=== PATIENT | female | born 1940 | race Caucasian/White ===

== ENCOUNTER 2016-07-24 11:20 | Inpatient (IN) ==
[2016-07-24 12:54] LABS: BASO% 0.1 % (0.0-0.8); HEMATOCRIT 45.4 % (37.0-47.0); HEMOGLOBIN 15.1 g/dL (12.0-16.0); IMM GRAN# 0.07 X1000 (0.0-0.04); IMM GRAN% 0.3 % (0.0-0.5); LYMPH# 2.05 X1000 (1.2-3.4); LYMPH% 9.1 % (20.5-51.1); MCH 30.9 PG (27-31); MCHC 33.3 g/dL (33-37); MCV 92.8 FL (81-99); MONO# 1.43 X1000 (0.11-0.59); MONO% 6.4 % (1.7-9.3); MPV 10.3 FL (7.4-10.4); NEUT% 84.1 % (42.2-75.2); PLT 434 X1000 (130-400); RBC 4.89 XMIL (4.2-5.4)
[2016-07-24 13:33] LABS: MANUAL DIFF NEEDED? NO
[2016-07-24] MEDS ORDERED: SODIUM CHLORIDE 0.9% INJ ONE (13:51)
[2016-07-24] MEDS ORDERED: PHENERGAN IV ONE (13:51)
[2016-07-24] MEDS ORDERED: NS 1,000 ML IV ONE ×2 (13:51→16:31)
[2016-07-24 13:54] LABS: ALBUMIN 4.7 g/dL (3.5-5.0); CALCIUM 9.9 mg/dL (8.8-10.2); POTASSIUM 3.9 mmol/L (3.5-5.1); TOTAL BILIRUBIN 0.47 mg/dL (0.20-1.00); TOTAL PROTEIN 8.1 g/dL (6.3-8.3)
--- NOTE | 2016-07-24 14:13 | PROVIDER DOCUMENTATION ---
HPI-Abdominal Pain/GI Problem - General Source: patient, family - History of Present Illness-ABD Nature of Presenting Problems: 76 yof presents to ed with complaints of vomiting. pt states onset 3 days ago and has had normal bowel movement.denies diarrhea or constipation. Abdominal Pain Onset Location: reports: generalized abdomen Pain Radiation: reports: no radiation Quality of Pain: reports: aching Severity in ED: reports: mild Onset/Duration: reports: 3 days ago Timing: reports: still present Activities at Onset: reports: none Exposure to sick contacts?: No Modifying Factors: improves with: nothing Associated Symptoms: reports: nausea, vomiting. denies: diarrhea Last BM: 24 hours ago Dark Stools Present?: reports: none noticed Rectal Bleeding: reports: none # of Diarrhea Episodes: 0 # of Vomiting Episodes: 5 Similar Symptoms Previously?: No Recently seen or treated by another doctor?: No <Isabella Sood - Last Filed: 07/24/16 16:31> <Gabriel An - Last Filed: 07/24/16 16:36> - General Chief Complaint: Nausea/Vomiting Stated Complaint: poss bowel blockage Time Seen by Provider: 07/24/16 13:43 Allergies/Adverse Reactions: Patient Allergies Allergy/AdvReac Type Severity Reaction Status Date / Time No Known Allergies Allergy Verified 04/17/15 21:08 Home Medications: Home Medication List Medication Instructions Recorded Confirmed Last Taken Type Fluoxetine HCl 40 mg PO QAM 02/12/14 04/17/15 04/17/15 History Levothyroxine Sodium 125 mcg PO QAM 02/12/14 04/17/15 04/17/15 History Tramadol HCl 50 mg PO BID 02/12/14 04/17/15 04/17/15 History LISINOpril [Prinivil] 10 mg PO DAILY #30 tablet 02/15/14 04/17/15 04/17/15 Rx Lactobacillus Rhamnosus GG 1 each PO BID #60 capsule 04/20/15 Unknown Rx [Culturelle] Levofloxacin [Levaquin] 500 mg PO DAILY #8 tablet 04/20/15 Unknown Rx Metronidazole [Flagyl] 500 mg PO TID #24 tablet 04/20/15 Unknown Rx Omeprazole [Prilosec] 40 mg PO DAILY@0700 #14 capsule 04/20/15 Unknown Rx Zinc Sulfate 220 mg PO DAILY #30 capsule 04/20/15 Unknown Rx Amoxicillin [Amoxil] 250 mg PO TID #30 capsule 06/14/16 Unknown Rx Review of Systems - Adult - REVIEW OF SYSTEMS - ADULT Constitutional: reports: fatique. denies: chills, fever Eyes: reports: no symptoms reported Ears, Nose, Mouth & Throat: reports: no symptoms reported Cardiovascular: reports: no symptoms reported Respiratory: reports: no symptoms reported Gastrointestinal: reports: abdominal pain, vomiting. denies: diarrhea Genitourinary: reports: no symptoms reported Musculoskeletal: reports: no symptoms reported Integumentary: reports: no symptoms reported Neurological: reports: no symptoms reported Psychiatric: reports: no symptoms reported Endocrine: reports: no symptoms reported Hematologic/Lymphatic: reports: no symptoms reported Allergic/Immunologic: reports: no symptoms reported All Other Systems: Reviewed and Negative <Isabella Sood - Last Filed: 07/24/16 16:31> Past History - Adult - PAST MEDICAL HISTORY-ADULT Review of Records: reports: Old Records Reviewed, Nursing Assessment Review, Medications Reviewed Major Childhood Illnesses: reports: denies history Cardiovascular: reports: HTN Gastrointestinal: reports: GERD Endocrine/Immune: reports: thyroid disorder - PRIOR SURGERIES/PROCEDURES Surgical/Procedure History: reports: cholecystectomy, other (neck spur) - IMMUNIZATION STATUS Childhood Immunizations: See Nurse Assessment Flu Vaccine: See Nurse Assessment - FAMILY HISTORY Family History: reviewed, not pertinent - SOCIAL HISTORY Smoking: denies Substance Use: denies Alcohol Use Frequency: never Living Situation: family <Isabella Sood - Last Filed: 07/24/16 16:31> Physical Exam-General - PHYSICAL EXAM-ADULT Initial Vital Signs Reviewed: Yes - CONSTITUTIONAL General Appearance: appears well, alert, no apparent distress - EYES Eyes: PERRL/EOMI, pink conjunctivae, fundi clear, no AV nicking - HEAD, EARS, NOSE, MOUTH & THROAT HENMT: normocephalic/atraumatic, moist mucous membranes, normal ENT inspection - NECK Neck: non-tender, full range of motion, supple, normal inspection - RESPIRATORY Respiratory: chest non-tender, lungs clear, normal breath sounds, no pleuratic chest pain, no respiratory distress, no accessory muscle use - CARDIOVASCULAR Cardiovascular: normal peripheral pulses, regular rate, rhythm, no edema, no gallop, no JVD, no murmur - GASTROINTESTINAL (ABDOMEN) Abdominal Exam: normal bowel sounds, soft, no organomegaly, no pulsatile mass, tenderness (general abd) - LYMPHATIC Lymphatic: no adenopathy - MUSCULOSKELETAL Back Exam: normal inspection, no CVA tenderness, no vertebral tenderness Extremity: normal range of motion, non-tender, normal gait, normal inspection, no pedal edema, no calf tenderness, normal capillary refill - SKIN Integumentary: normal color, normal turgor, warm/dry - 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, grossly normal, no motor/sensory deficits - PSYCHIATRIC Psych/Mental Status: normal mood/affect, normal thought content, normal thought process, oriented x 3 <Isabella Sood - Last Filed: 07/24/16 16:31> Progress - PLAN OF CARE/RESULTS Progress/Plan/Lab Results: Laboratory Tests 07/24/16 07/24/16 11:42 11:42 WBC 22.44 H RBC 4.89 Hgb 15.1 Hct 45.4 MCV 92.8 MCH 30.9 MCHC 33.3 RDW Std Deviation 14.0 Plt Count 434 H MPV 10.3 Immature Gran % (Auto) 0.3 Neut % (Auto) 84.1 H Lymph % (Auto) 9.1 L Pitt % (Auto) 6.4 Eos % (Auto) 0.0 Baso % (Auto) 0.1 Immature Gran # (Auto) 0.07 H Neut # (Auto) 18.86 H Lymph # (Auto) 2.05 Pitt # (Auto) 1.43 H Eos # (Auto) 0.00 Baso # (Auto) 0.03 Sodium 138 Potassium 3.9 Chloride 98 Carbon Dioxide 15 L Anion Gap 25 BUN 17 Creatinine 1.4 H Estimated GFR/1.73 m2 36 BUN/Creatinine Ratio 12 Glucose 232 H Calculated Osmolality 285 Calcium 9.9 Total Bilirubin 0.47 AST 18 ALT 22 Alkaline Phosphatase 135 H Total Protein 8.1 Albumin 4.7 Globulin 3.4 Albumin/Globulin Ratio 1.4 Amylase 47 Lipase 17 Orders Category Date Time Status NPO Diet 07/24/16 11:34 Active ABDOMEN/PELVIS W/O CONTRAST [CT] Stat Exams 07/24/16 14:24 Completed cxr [CHEST-2 VIEWS] [RAD] Stat Exams 07/24/16 15:27 Taken AMYLASE [CHEM] Stat Lab 07/24/16 11:42 Completed CBC WITH ELECTRONIC DIFF [HEME] Stat Lab 07/24/16 11:42 Completed COMPREHENSIVE METABOLIC PANEL [CHEM] Stat Lab 07/24/16 11:42 Completed LIPASE [CHEM] Stat Lab 07/24/16 11:42 Completed UDS [URINE DRUG SCREEN] Stat Lab 07/24/16 16:21 Uncollected URINALYSIS W/POSS RFLX CULT [URINALYSIS] Stat Lab 07/24/16 11:34 Uncollected 0.9% Sodium Chloride Inj [Ns] 1,000 ml Med 07/24/16 16:31 Ordered IV 150 mls/hr 0.9% Sodium Chloride Inj [Ns] 1,000 ml Med 07/24/16 13:51 Discontinued IV 999 mls/hr Promethazine [Phenergan] Med 07/24/16 13:51 Discontinued 25 mg IV NOW ONE Sodium Chloride 0.9% Med 07/24/16 13:51 Discontinued 10 ml INJ NOW ONE Vital Signs - 24 hr 07/24/16 11:28 Temperature 97.9 F Pulse Rate 116 H Respiratory 20 Rate Blood Pressure 144/105 O2 Sat by Pulse 96 Oximetry <Isabella Sood - Last Filed: 07/24/16 16:31> - REASSESSMENT Reassessment #2 Time Reassessed: 16:34 Status: unchanged (still vomits on liquids) <Gabriel An - Last Filed: 07/24/16 16:36> Departure <Isabella Sood - Last Filed: 07/24/16 16:31> - Departure Time of Disposition Order: 16:35 Certified Medical Emergency: Emergent <Gabriel An - Last Filed: 07/24/16 16:36> - Departure DIAGNOSIS: Vomiting Qualifiers: Vomiting type: unspecified Vomiting Intractability: unspecified Nausea presence : without nausea Qualified Code(s): R11.11 - Vomiting without nausea Disposition: ADMITTED INPATIENT 09 Condition: Stable Referrals: Andry Sarmiento MD [Primary Care Provider] - Attestation - Scribe Verification/Attestation Scribe:: Isabella Sood Acting as Scribe for:: Gabriel An Scribe documention review:: This chart was documented by a scribe and accurately reflects the service the provider performed and the decisions made by the provider. <Isabella Sood - Last Filed: 07/24/16 16:31> Physician Attestation
--- NOTE | 2016-07-24 15:01 | Diag Imaging Result Document ---
PROCEDURE NAME: ABDOMEN/PELVIS W/O CONTRAST - 07/24/2016 CT ABDOMEN AND PELVIS: A CT dose reduction protocol was used. COMPARISON: 06/14/2016. FINDINGS: There is fatty change of the liver. There are several cysts in the liver. There is some atelectasis or scarring in the lung bases but no infiltrates. There are cholecystectomy clips. No bowel obstruction or inflammation. No free air or free fluid. Normal appendix. No radiodense renal stones or hydronephrosis. Urinary bladder, uterus, and rectum are normal. Degenerative changes of the lower lumbar spine. No acute bony lesions. IMPRESSION: Fatty liver. No acute disease. MTDD
[2016-07-24] MEDS ORDERED: ZOFRAN IV PRN ×2 (16:29→19:32)
--- NOTE | 2016-07-24 16:42 | Diag Imaging Result Document ---
PROCEDURE NAME: CHEST-2 VIEWS - 07/24/2016 CHEST, 2 VIEWS: COMPARISON: 04/17/2015. FINDINGS: There is right hemidiaphragm elevation. No focal infiltrates, pneumothorax, or pleural effusion. Heart size is normal. IMPRESSION: No acute disease.
[2016-07-24] MEDS ORDERED: SODIUM CHLORIDE 0.9% INJ SCH (16:45)
[2016-07-24] MEDS ORDERED: PROTONIX IV SCH (16:45)
[2016-07-24 17:02] LABS: HEMOGLOBIN A1C 5.6 % (4.8-6.0)
[2016-07-24 17:24] LABS: URINE CULTURE NEEDED? NO; URINE SOURCE CATH
[2016-07-24 17:33] LABS: BILIRUBIN URINE NEGATIVE (NEGATIVE); BLOOD URINE TRACE (NEGATIVE); COLOR YELLOW; GLUCOSE URINE NEGATIVE (NEGATIVE); LEUKOCYTES URINE NEGATIVE (NEGATIVE); NITRITE URINE NEGATIVE (NEGATIVE); PROTEIN URINE 70 mg/dL (NEGATIVE); SP GRAVITY URINE 1.024; TURBIDITY URINE CLEAR (CLEAR); URINE MICRO REVIEW NEEDED? YES; UROBILINOGEN URINE NORMAL (NORMAL)
[2016-07-24 17:35] LABS: UR EPITHELIAL CELLS <10 /HPF (<10); URINE BACTERIA NEGATIVE /HPF; URINE RBC <10 /HPF (<10); URINE WBC <10 /HPF (<10)
[2016-07-24 17:36] LABS: URINE CASTS NONE SEEN; URINE CRYSTALS NONE SEEN; URINE SMALL ROUND CELLS NONE SEEN
[2016-07-24] MEDS: NS 1,000 ML IV SCH (17:45)
[2016-07-24 17:50] LABS: FREE T4 1.24 ng/dL (0.93-1.70)
[2016-07-24 17:51] LABS: UR AMPHETAMINES QUAL NONE DETECTED (NONE DETECT); UR BARBITUATES QUAL NONE DETECTED (NONE DETECT); UR BENZODIAZEPIN QUAL NONE DETECTED (NONE DETECT); UR CANNABINOIDS QUAL NONE DETECTED (NONE DETECT); UR COCAINE QUAL NONE DETECTED (NONE DETECT); UR METHADONE QUAL NONE DETECTED (NONE DETECT); UR OPIATES QUAL NONE DETECTED (NONE DETECT); UR OXYCODONE QUAL NONE DETECTED (NONE DETECT); UR PCP QUAL NONE DETECTED (NONE DETECT)
[2016-07-24] MEDS ORDERED: TYLENOL PO PRN (19:32)
[2016-07-24] MEDS ORDERED: LABETALOL IV PRN (19:37)
[2016-07-24] MEDS ORDERED: HUMULIN R SUBQ SCH (21:00)
[2016-07-24] MEDS: PROTONIX IV SCH (22:59)
[2016-07-24] MEDS: SODIUM CHLORIDE 0.9% INJ SCH (22:59)
[2016-07-24] MEDS: COREG PO SCH (23:04)
[2016-07-25] MEDS: NS 1,000 ML IV SCH ×3 (03:11→22:10)
[2016-07-25 06:52] LABS: MANUAL DIFF NEEDED? NO
[2016-07-25 07:04] LABS: BASO% 0.1 % (0.0-0.8); EOS# 0.04 X1000 (0.0-0.7); EOS% 0.3 % (0.0-10.0); HEMATOCRIT 36.2 % (37.0-47.0); IMM GRAN# 0.04 X1000 (0.0-0.04); IMM GRAN% 0.3 % (0.0-0.5); LYMPH# 2.42 X1000 (1.2-3.4); LYMPH% 15.8 % (20.5-51.1); MCH 31.3 PG (27-31); MCHC 33.1 g/dL (33-37); MCV 94.5 FL (81-99); MONO# 1.38 X1000 (0.11-0.59); MPV 9.7 FL (7.4-10.4); NEUT% 74.5 % (42.2-75.2); PLT 305 X1000 (130-400); RBC 3.83 XMIL (4.2-5.4)
[2016-07-25 07:26] LABS: AGAP 11; ALBUMIN 3.7 g/dL (3.5-5.0); ALKALINE PHOSPHATASE 98 U/L (32-104); BUN 15 mg/dL (8-22); CALCIUM 8.8 mg/dL (8.8-10.2); CHLORIDE 106 mmol/L (98-107); COSMO 283; GOT 13 U/L (10-30); GPT 14 U/L (10-36); POTASSIUM 4.1 mmol/L (3.5-5.1); SODIUM 141 mmol/L (136-145); TCO2 24 mmol/L (25-35); TOTAL BILIRUBIN 0.51 mg/dL (0.20-1.00); TOTAL PROTEIN 6.2 g/dL (6.3-8.3)
[2016-07-25] MEDS: ZINC SULFATE PO SCH (08:55)
[2016-07-25] MEDS: PROTONIX IV SCH ×2 (08:55→22:10)
[2016-07-25] MEDS: COREG PO SCH ×2 (08:55→22:11)
[2016-07-25] MEDS: PROZAC PO SCH (08:56)
[2016-07-25] MEDS: SYNTHROID PO SCH (08:56)
[2016-07-25] MEDS ORDERED: PRINIVIL PO SCH (09:00)
[2016-07-25] MEDS ORDERED: LOVENOX SUBQ SCH (12:15)
--- NOTE | 2016-07-25 13:25 | PROGRESS NOTE ---
DATE: 07/25/2016 SUBJECTIVE: The patient is resting comfortably in bed. She has no complaints at this time. She was able to tolerate a clear liquid diet without any nausea or vomiting today. She denies having any abdominal pain at this time. OBJECTIVE: Vital Signs: Temperature 98.1 degrees, blood pressure 117/60, heart rate 84, respirations 19, O2 saturations 100% on room air. General: This is an elderly female, lying in bed, in no acute distress. Head: Normocephalic atraumatic. Heart: S1, S2. Normal. Regular rate and rhythm. Lungs: Clear to auscultation bilaterally. No wheezes, no rales. No rhonchi. Abdomen: Positive bowel sounds. Soft, nontender, nondistended. Extremities: No edema. No cyanosis. No calf tenderness. Neurologic: The patient is awake and alert. LABS: Sodium 141, potassium 4.1, chloride 106, CO2 24, BUN 15, creatinine 0.9. White blood cell count 15, hemoglobin 12, hematocrit 36, platelets 305,000. ASSESSMENT AND PLAN: 1. Nausea with vomiting. The patient is tolerating a clear liquid diet at this time. The stool for C. difficile was negative. 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 2. Acute kidney injury. Resolved. 3. Hypothyroidism. Continue on Synthroid. 4. Hypertension. Controlled. Continue on Coreg. 5. Deep vein thrombosis prophylaxis. Will start the patient on Lovenox. 6. Will consult physical therapy.
[2016-07-25] MEDS: SODIUM CHLORIDE 0.9% INJ SCH (22:10)
--- NOTE | 2016-07-25 22:35 | CONSULTATION ---
DATE OF CONSULTATION: 07/25/2016 REFERRING PHYSICIAN: Cee Tang M.D. PRIMARY CARE PHYSICIAN: Andry Sarmiento M.D. INDICATION FOR CONSULTATION: 1. Nausea with vomiting. 2. Diarrhea. 3. Intermittent fecal incontinence. 4. Abdominal pain. HISTORY OF PRESENT ILLNESS: The patient is a 76-year-old white female who was initially seen in April 2015. At that time, she reported episodic nausea with vomiting, abdominal pain and diarrhea. She was initially thought to have biliary colic and underwent a cholecystectomy on 04/04/2015. She did well for approximately 10 days and then her symptoms recurred. We evaluated her on 04/18/2015 and scheduled an outpatient EGD and colonoscopy after completion of a 10 day course of antibiotics. Unfortunately, the patient states that her symptoms resolved and so she never came for evaluation. Over the last 12 months, she has been seen in the emergency room and has been evaluated by her primary care physician for recurrent episodes of nausea with vomiting, abdominal pain and diarrhea. She is admitted for evaluation of the same. We are asked to participate in her care. PAST MEDICAL HISTORY: 1. Hypertension. 2. Hypothyroidism. 3. Depression. 4. Cholelithiasis. 5. Fatty liver. 6. Hepatic cysts on previous CT scan. 7. Coronary artery disease. 8. Hyperlipidemia. 9. Chronic nausea with vomiting. 10. Chronic diarrhea. 11. CT scan in June 2016 with evidence of gastric ulcer with no evidence of perforation. PAST SURGICAL HISTORY: 1. Laparoscopic cholecystectomy on 04/04/2015. 2. Cervical diskectomy. 3. Hemorrhoidectomy. 4. Surgical repair of an anal fissure. SOCIAL HISTORY: Negative for alcohol, tobacco or recreational drug use. The patient is a and lives alone. Her daughter is concerned about dementia. Therefore consent was discussed with both the patient and her daughter. FAMILY HISTORY: Positive for hypertension. REVIEW OF SYSTEMS: The patient states that she feels a little bit better today. She continues to have nausea with vomiting, diarrhea and abdominal pain. She does state that is not as severe as it was in the past when she had documented acute colitis on CT scan in 2014. MEDICATION ALLERGIES: No known medication allergies. HOME MEDICATION: 1. Zinc sulfate. 2. Prilosec. 3. Levothyroxine. 4. Prinivil. 5. Fluoxetine. PHYSICAL EXAM: General: She is in no acute distress. Vital signs: Her blood pressure is 151/77, pulse 81, respiration 18, temperature of 98.0 degrees. HEENT: Negative for jaundice. Her conjunctivae are slightly pale. Oropharyngeal mucosa membranes are dry. Pulmonary: Lungs are clear to auscultation with normal respiratory effort. Cardiovascular Examination: Reveals regular rate and rhythm with no gallops or rubs. Abdominal Exam: Reveals normoactive bowel sounds. The abdomen is soft with mild to moderate epigastric tenderness but no rebound or guarding. Extremities: Bilaterally are negative for cyanosis, clubbing or edema. Neurologic: Patient is alert and oriented x3. OBJECTIVE DATA: Remarkable for a hemoglobin of 12.0 with hematocrit of 36.2 and a white count of 15.35 which is an interval improvement from her admission white count of 22.44. She has 305,000 platelets. Her sodium is 141, potassium 4.1, chloride 106, CO2 24, BUN 15, creatinine 0.9 with a glucose 111. Calcium is 8.8, total bilirubin 0.51, AST 13, ALT 14, alkaline phosphatase 98, total protein 6.2, albumin 3.7. IMPRESSION: 1. Nausea with vomiting. 2. Abdominal pain. 3. Diarrhea. 4. Recent change on CT scan consistent with gastric ulcer with no evidence of perforation. 5. Known fatty liver disease. 6. Known hepatic cyst. RECOMMENDATION: 1. It was previously recommended that the patient have an EGD and colonoscopy as she has a history of recurrent colitis. Therefore, will schedule an EGD and colonoscopy on Wednesday. Consent was discussed with the patient and her daughter, Melita. 2. I would continue Protonix 40 mg IV q.12 hours. 3. Continue supportive care and IV hydration. 4. Continue zinc sulfate. She has a history of zinc deficiency. 5. Additional recommendations to follow based on her clinical course. [facility]
[2016-07-26 07:02] LABS: HEMATOCRIT 33.1 % (37.0-47.0); HEMOGLOBIN 10.6 g/dL (12.0-16.0); MCH 31.2 PG (27-31); MCV 97.4 FL (81-99); MPV 9.9 FL (7.4-10.4); RBC 3.4 XMIL (4.2-5.4)
[2016-07-26 07:21] LABS: AGAP 13; BUN 11 mg/dL (8-22); CHLORIDE 106 mmol/L (98-107); COSMO 278; POTASSIUM 3.2 mmol/L (3.5-5.1); SODIUM 140 mmol/L (136-145); TCO2 21 mmol/L (25-35)
[2016-07-26] MEDS ORDERED: KLOR-CON PO ONE (08:15)
[2016-07-26] MEDS: PROZAC PO SCH (11:23)
[2016-07-26] MEDS: SYNTHROID PO SCH (11:23)
[2016-07-26] MEDS: ZINC SULFATE PO SCH (11:23)
[2016-07-26] MEDS: PROTONIX IV SCH ×2 (11:23→21:13)
[2016-07-26] MEDS: COREG PO SCH ×2 (11:23→21:12)
[2016-07-26] MEDS: NS 1,000 ML IV SCH (11:24)
[2016-07-26] MEDS ORDERED: GOLYTELY PO ONE (14:00)
--- NOTE | 2016-07-26 17:37 | PROGRESS NOTE ---
DATE: 07/26/2016 SUBJECTIVE: The patient is resting comfortably in bed. She states that she feels a lot better today. She is scheduled to undergo an EGD on Wednesday. OBJECTIVE: Vital Signs: Temperature 98 degrees, blood pressure 148/70, heart rate 81, respirations 19, O2 saturations 98% on room air. General: This is an overweight female lying in bed in no acute distress. Head: Normocephalic, atraumatic. Heart: S1, S2. Normal. Regular rate and rhythm. Lungs: Clear to auscultation bilaterally. No wheezes, no rales. No rhonchi. Abdomen: Positive bowel sounds. Soft, nontender, nondistended. Extremities: No edema. No cyanosis. No calf tenderness. Neurologic: The patient is alert and oriented x3. No focal neurologic deficits noted. LABS: White blood cell count 9.1, hemoglobin 10, hematocrit 33, platelets 261,000. Sodium 140, potassium 3.2, chloride 106, CO2 21, BUN 11, creatinine 0.7, glucose 88, calcium 8.0. ASSESSMENT AND PLAN: 1. Nausea with vomiting. This appears to have resolved. The patient is scheduled to undergo an EGD with colonoscopy tomorrow. Continue on IV Protonix. 2. Hypothyroidism. Continue on Synthroid. 3. Situational depression. Continue on Prozac. 4. Hypertension. Controlled. Continue on Coreg. 5. Deep vein thrombosis prophylaxis. Continue with SCDs. 6. Will consult physical therapy.
[2016-07-27 07:25] LABS: HEMATOCRIT 34.9 % (37.0-47.0); HEMOGLOBIN 11.5 g/dL (12.0-16.0); MCH 31.8 PG (27-31); MCV 96.4 FL (81-99); RBC 3.62 XMIL (4.2-5.4)
[2016-07-27 07:53] LABS: AGAP 12; BUN 6 mg/dL (8-22); CALCIUM 8.4 mg/dL (8.8-10.2); CHLORIDE 104 mmol/L (98-107); COSMO 279; SODIUM 141 mmol/L (136-145); TCO2 25 mmol/L (25-35)
[2016-07-27] MEDS: PROTONIX IV SCH ×2 (08:20→21:44)
[2016-07-27] MEDS: SODIUM CHLORIDE 0.9% INJ SCH (08:20)
[2016-07-27] MEDS ORDERED: MYLICON DROPS (DOSE) MISC ONE (14:52)
[2016-07-27] MEDS ORDERED: DIPRIVAN 1% ONE (15:57)
[2016-07-27] MEDS ORDERED: FENTANYL ONE (15:57)
[2016-07-27 15:58] LABS: SPECIMEN GASTRIC FLUID
[2016-07-27] MEDS ORDERED: XYLOCAINE-MPF 2% ONE (16:06)
[2016-07-27] MEDS ORDERED: LR 1,000 ML ONE (16:07)
[2016-07-27] MEDS ORDERED: ANESTHESIA PB SET 88 IN 5742 ONE (16:07)
[2016-07-27] MEDS: ZINC SULFATE PO SCH (17:14)
[2016-07-27] MEDS: SYNTHROID PO SCH (17:14)
[2016-07-27] MEDS: PROZAC PO SCH (17:14)
[2016-07-27] MEDS: COREG PO SCH (17:14)
[2016-07-27] MEDS: CARAFATE LIQUID PO SCH ×2 (17:28→21:44)
[2016-07-27] MEDS: NS IV SCH ×2 (17:28→21:49)
[2016-07-27] MEDS: FLAGYL IV SCH ×2 (17:28→21:49)
[2016-07-27] MEDS: LEVAQUIN 500 MG/D5W 100 ML IV SCH (18:44)
--- NOTE | 2016-07-27 19:41 | PROGRESS NOTE ---
DATE: 07/27/2016 SUBJECTIVE: Patient reports feeling better. The patient is supposed to have EGD today. OBJECTIVE: Vital Signs: Temperature 97.8 degrees, heart rate 72, respiratory rate 20, blood pressure 178/83, O2 saturation 95% on room air. General Examination: This is a 76-year-old, female lying in bed, in no acute distress. HEENT: Head is normocephalic, atraumatic. Anicteric sclerae and pale conjunctivae. Mucous membranes moist. Neck: Supple. No JVD is noted. No carotid bruits. No lymphadenopathy. No thyromegaly. Cardiovascular: S1, S2 heard. No murmurs, gallops, or rubs. Regular rate and rhythm. Respiratory Examination: Clear bilaterally to auscultation. No work of breathing or using accessory muscles. Abdomen: Soft, nontender to palpation. Bowel sounds present. No organomegaly. Extremities: No clubbing, cyanosis, or edema. Peripheral pulses present in both legs. Neurological Examination: Patient alert and oriented x3. Able to move 4 extremities. LABORATORY DATA: White cell count 6.97, hemoglobin 11.5, hematocrit 34.9, platelets 262,000. BMP unremarkable. ASSESSMENT AND PLAN: 1. Intractable nausea and vomiting. This condition is resolving. EGD is going to be performed by Dr. Michael. 2. Hypothyroidism. We will continue with Synthroid. 3. Situational depression. We will continue with Prozac. 4. Hypertension. We will continue with Coreg. 5. Deep vein thrombosis prophylaxis with SCDs. 6. Physical deconditioning. Physical Therapy on board..
[2016-07-27] MEDS: NORVASC PO SCH (21:49)
[2016-07-28] MEDS: FLAGYL IV SCH ×3 (05:59→19:07)
[2016-07-28] MEDS: CARAFATE LIQUID PO SCH ×3 (05:59→19:08)
[2016-07-28] MEDS: COREG PO SCH ×3 (05:59→20:22)
[2016-07-28] MEDS: NS IV SCH ×3 (05:59→19:07)
[2016-07-28 07:34] LABS: AGAP 11; BUN 5 mg/dL (8-22); CALCIUM 8.5 mg/dL (8.8-10.2); CHLORIDE 101 mmol/L (98-107); COSMO 271; POTASSIUM 3.1 mmol/L (3.5-5.1); SODIUM 136 mmol/L (136-145); TCO2 24 mmol/L (25-35)
[2016-07-28 08:31] LABS: MANUAL DIFF NEEDED? NO
[2016-07-28 08:32] LABS: BASO% 0.3 % (0.0-0.8); EOS# 0.13 X1000 (0.0-0.7); EOS% 1.7 % (0.0-10.0); HEMATOCRIT 33.8 % (37.0-47.0); HEMOGLOBIN 11.4 g/dL (12.0-16.0); IMM GRAN# 0.02 X1000 (0.0-0.04); IMM GRAN% 0.3 % (0.0-0.5); LYMPH# 2.06 X1000 (1.2-3.4); LYMPH% 27.4 % (20.5-51.1); MCH 31.6 PG (27-31); MCHC 33.7 g/dL (33-37); MCV 93.6 FL (81-99); MONO# 0.64 X1000 (0.11-0.59); MONO% 8.5 % (1.7-9.3); MPV 10.2 FL (7.4-10.4); NEUT% 61.8 % (42.2-75.2); PLT 261 X1000 (130-400); RBC 3.61 XMIL (4.2-5.4)
[2016-07-28] MEDS: PROZAC PO SCH (08:43)
[2016-07-28] MEDS: NORVASC PO SCH ×2 (08:43→20:22)
[2016-07-28] MEDS: SYNTHROID PO SCH (08:44)
[2016-07-28] MEDS: ZINC SULFATE PO SCH (08:44)
[2016-07-28] MEDS: PROTONIX IV SCH ×2 (08:45→20:22)
[2016-07-28] MEDS: SODIUM CHLORIDE 0.9% INJ SCH (08:45)
[2016-07-28] MEDS ORDERED: POTASSIUM CHLORIDE 60 MEQ in NS 500 ML IV ONE (09:00)
--- NOTE | 2016-07-28 15:37 | PROGRESS NOTE ---
DATE: 07/28/2016 SUBJECTIVE: The patient states that her nausea with vomiting and abdominal pain have improved since she was placed on IV antibiotics and IV Protonix, as well as Carafate on 07/28/2016. She is hungry and ready to go home. She denies complaints otherwise. OBJECTIVE: Vital signs: On exam, her blood pressure is 157/79, pulse 75, respiration 20, temperature of 98.1 degrees. Abdominal: Reveals normoactive bowel sounds. The abdomen is soft with mild diffuse tenderness but it is considerably less than her previous exam. LABORATORY DATA: Remarkable for hemoglobin of 11.1, with hematocrit of 33.8, and a white count of 7.52. She has 261,000 platelets. Sodium is 136, potassium 3.1, chloride 101, CO2 24, BUN 5, creatinine 0.7, with a glucose of 128. Her calcium is 8.5. Her gastric pH is 4. RECOMMENDATION: 1. Continue Carafate and Protonix for the ulcers. 2. Continue IV antibiotics for her colitis. I would transition to oral antibiotics on 07/29/2016. 3. I would advance her diet. 4. If she tolerates advancement of her diet and oral antibiotics tomorrow, it would be reasonable to consider outpatient management with a 10 day course of antibiotics followed by clinic follow up. 5. Additional recommendations to follow based on her clinical course.
--- NOTE | 2016-07-28 17:02 | PROGRESS NOTE ---
DATE: 07/28/2016 The patient reports feeling better. She is not vomiting. Denies any abdominal pain and she did tolerate a clear liquid diet. OBJECTIVE: Vital Signs: Temperature 98.1 degrees, heart rate 75, respiratory rate 20, blood pressure 157/79, O2 saturation 96% on room air. General Examination: This is a 76-year-old female lying in bed, in no acute distress. HEENT: Head is normocephalic, atraumatic. Anicteric sclerae and pale conjunctivae. Mucous membranes moist. Neck: Supple. No JVD noted. No carotid bruits. No lymphadenopathy. No thyromegaly. Cardiovascular: S1 and S2 heard. No murmurs, gallops, or rubs. Regular rate and rhythm. Respiratory: Clear bilaterally to auscultation. No work of breathing or using accessory muscles. Abdomen: Soft, nontender to palpation. Bowel sounds present. No organomegaly. Extremities: No clubbing, cyanosis, or edema. Peripheral pulses present in both legs. Neurological: Patient is alert and oriented x3. Able to move 4 extremities. LABORATORY DATA: White cell count 7.52, hemoglobin 11.4, hematocrit 33.8, platelets 261,000. BMP unremarkable except potassium 3.1. ASSESSMENT AND PLAN: 1. Erosive gastritis with antral ulcer. 2. Pancolitis. 3. Intractable nausea and vomiting. 4. Hypothyroidism. 5. Situational depression. 6. Hypertension. 7. DVT prophylaxis. PLAN: Patient is feeling fine. She is tolerating clear liquid diet so I think that this patient is doing good. The hemoglobin is so far stable. I think if this patient continues to tolerate diet she can be discharged home. We will continue with the treatment for colitis for 10 more days. She will have a followup in the office with Dr. Michael. For hypothyroidism we will continue with Synthroid. For situational depression we will continue Prozac. For hypertension patient has been kept on Coreg which is home medication and blood pressure is mostly between 130 and 150.
[2016-07-28] MEDS: LEVAQUIN 500 MG/D5W 100 ML IV SCH (20:21)
[2016-07-29] MEDS: CARAFATE LIQUID PO SCH ×3 (01:16→12:26)
[2016-07-29] MEDS: FLAGYL IV SCH ×3 (01:16→12:21)
[2016-07-29] MEDS: NS IV SCH ×3 (01:16→12:21)
[2016-07-29 08:14] VITALS: BP 156/95
[2016-07-29] MEDS: SODIUM CHLORIDE 0.9% INJ SCH (09:58)
[2016-07-29] MEDS: PROTONIX IV SCH (09:58)
[2016-07-29] MEDS: SYNTHROID PO SCH (09:59)
[2016-07-29] MEDS: COREG PO SCH (09:59)
[2016-07-29] MEDS: PROZAC PO SCH (09:59)
[2016-07-29] MEDS: NORVASC PO SCH (09:59)
[2016-07-29] MEDS: ZINC SULFATE PO SCH (09:59)
--- NOTE | 2016-07-29 16:24 | DISCHARGE SUMMARY ---
ADMISSION DATE: 07/24/2016 DISCHARGE DATE: 07/29/2016 ADMISSION DIAGNOSES: 1. Nausea with vomiting. 2. Acute kidney injury. 3. Hypothyroidism. 4. Hypertension. DISCHARGE DIAGNOSES: 1. Erosive gastritis with antral ulcer. 2. Atte colitis. 3. Intractable nausea and vomiting. 4. Hypothyroidism. 5. Situational depression. 6. Hypertension. CONSULTATIONS: Cherise Michael M.D., Gastroenterology. PROCEDURES: Colonoscopy and esophagogastroduodenoscopy with a postop diagnosis of esophagitis, erosive gastritis, antral ulcer, active bile reflux in the duodenum, duodenitis , erosions of the fundus and antrum, ascending colon polyp, and polyp at 65 cm, diverticulosis, pancolitis, external and internal hemorrhoids. HOSPITAL COURSE: Ms. Franklin is a 76-year-old, female who presented on 07/24/2016 with complaints of nausea, vomiting, diarrhea and abdominal pain. She was last seen in April 2015 and initially thought to have biliary colic. At that time went for a cholecystectomy. Apparently she did well and the symptoms recurred. She was scheduled as an outpatient for EGD and colonoscopy after completing antibiotics in April. Once she completed antibiotics her symptoms resolved so she never came for the EGD and colonoscopy. Dr. Michael was consulted who performed an EGD and a colonoscopy, and found that she had esophagitis, erosive gastritis with antral ulcer, duodenitis, pancolitis, colon polyps, diverticulosis, internal and external hemorrhoids. She was continued on Levaquin, Flagyl, Carafate and Protonix during her stay. She has been denying vomiting. She denies abdominal pain. She has been tolerating a her diet. Plans are to continue with treatment for colitis over the next 10 days. She will have a followup with Dr. Michael as outpatient. For her hypothyroidism she will continue Synthroid. For the situational depression she will continue Prozac. For her hypertension she was kept on Coreg which was her home medication. She has maintained her blood pressure between 120 and 150. DISCHARGE VITAL SIGNS: Temperature 97.8 degrees, heart rate 89, respiratory rate 18, blood pressure 156/95, O2 saturation 95% on room air. LABORATORY DATA: White blood cells 7000, hemoglobin 11, hematocrit 33, platelet count 261,000. Sodium 136, potassium 3.1, BUN 5, creatinine 0.7, glucose 128, calcium 8.5. These labs were drawn on 07/28/2016 she was replaced with potassium for the 3.1. IMAGIN07/24/[address]: Fatty liver. No acute disease. 07/24/2016 chest x-ray: No acute disease. There is a right hemidiaphragm. DISCHARGE DIET: GI soft. DISCHARGE ACTIVITY: As tolerated. DISCHARGE MEDICATIONS: 1. We have added Carafate 1 g p.o. q.6 hours. 2. Her Coreg she will continue at 6.25 p.o. every 12 hours. 3. Levaquin 750 p.o. daily for 8 more days for a total of 10 days. 4. Flagyl she will do 500 mg p.o. 3 times a day. 5. Norvasc 5 mg p.o. twice daily. 6. She will continue fluoxetine 40 mg p.o. daily, 7. Synthroid 125 mcg p.o. daily. DISPOSITION: Home. DISCHARGE INSTRUCTIONS: Continue antibiotic therapy as instructed and follow up with Dr. Michael as outpatient. DISCHARGE TIME : 38 minutes Dictated by KYLE Kelly for Milton Ceja MD MTDD
--- NOTE | 2016-07-31 18:13 | HISTORY AND PHYSICAL ---
CHIEF COMPLAINT: Persistent nausea and vomiting for the last several days. HISTORY OF PRESENT ILLNESS: Ms. Franklin is a 76-year-old female with a history of hypertension, hypothyroidism, depression and coronary artery disease, who presented to the ER with a chief complaint of nausea, vomiting and diarrhea, that had been going on for at least 3-4 days. The patient is a very poor historian. She just states that she has been unable to keep liquids or solids down because she feels nauseous. The patient denies having any abdominal pain at this time. She denies having fever or chills. She does report diarrhea that she had maybe 2 days ago. The patient was seen by Dr. Michael in the past. However, the patient has not followed up with Dr. Michael for further evaluation since her prior hospital stay. The patient denies having any chest pain, syncope or change in gait or balance at this time. In the ER, a CT of the abdomen and pelvis was done that revealed fatty liver disease, but was otherwise unremarkable. PAST MEDICAL HISTORY: 1. Hepatic steatosis. 2. Coronary artery disease. 3. Dyslipidemia. 4. Depression. 5. Hypothyroidism. 6. Hypertension. 7. Obesity. PAST SURGICAL HISTORY: 1. Hemorrhoidectomy. 2. Cervical diskectomy. 3. Laparoscopic cholecystectomy. 4. Anal fissure repair. SOCIAL HISTORY: The patient is and lives alone at home. She states that she has a daughter that lives close by that checks on her daily. The patient denies any tobacco, alcohol or illicit drug use. FAMILY HISTORY: Positive for hypertension. HOME MEDICATIONS: 1. Prilosec 40 mg p.o. daily. 2. Synthroid 125 mcg p.o. every morning. 3. Lisinopril 10 mg p.o. daily. 4. Prozac 40 mg p.o. every morning. ALLERGIES: No known drug allergies. REVIEW OF SYSTEMS: All review of systems were noted to be negative, except for what is listed in the HPI. PHYSICAL EXAMINATION: VITAL SIGNS: Temperature 97.9, blood pressure 144/78, heart rate 90, respirations 16, O2 saturations 98% on room air. GENERAL: This is an elderly female, lying in bed, in no acute distress. HEAD: Normocephalic, atraumatic. HEART: S1, S2. Normal. Regular rate and rhythm. LUNGS: Clear to auscultation bilaterally. No wheezing, no rales. No rhonchi. ABDOMEN: Positive bowel sounds. Soft, nontender, nondistended. EXTREMITIES: No edema. No cyanosis. No calf tenderness. NEUROLOGIC: The patient is alert and oriented x3. No focal neurologic deficits noted. LABS: White blood cell count 22, hemoglobin 15, hematocrit 45, platelets 434. Sodium 138, potassium 3.9, chloride 98, CO2 of 15, BUN 17, creatinine 1.4, glucose 232. Calcium 9.9. AST 18, ALT 22, alkaline phosphatase 135, albumin 4.7. TSH 10. Free T4 of 1.2. Drug toxicology screen negative. CT of the abdomen and pelvis reveals fatty liver disease. ASSESSMENT AND PLAN: 1. Nausea, vomiting and diarrhea. We will start the patient on IV Protonix and IV fluid hydration. We will leave the patient n.p.o. for now and consult Gastroenterology. We will also order stool studies. 2. Leukocytosis. Blood cultures have been obtained as well as stool studies. We will hold off on starting IV antibiotics at this time. The patient is afebrile. We will also check a CRP and sedimentation rate. 3. Hypertension. This appears to be uncontrolled. Will add Coreg and continue on the patient's lisinopril. 4. Hypothyroidism. Continue on Synthroid. 5. Situational depression. Continue on Prozac. 6. Deep vein thrombosis prophylaxis. Will start the patient on Lovenox 40 mg subcutaneous daily. cc: Cee Tang MD
--- NOTE | 2016-07-31 20:58 | OPERATIVE NOTE ---
PROCEDURE DATE: 07/27/2016 REFERRING PHYSICIAN: Cee Tang M.D. PRIMARY CARE PHYSICIAN: Andry Sarmiento M.D. INDICATION FOR PROCEDURE: 1. Nausea with vomiting. 2. Diarrhea. 3. Abdominal pain. 4. CT scan consistent with peptic ulcer disease. PROCEDURE PERFORMED: 1. Esophagogastroduodenoscopy with biopsy. 2. Esophagogastroduodenoscopy with esophageal brushings. 3. Gastric fluid aspiration. CONSENT: Informed consent was obtained from the patient prior to the procedure. The risks, benefits, and alternatives were discussed. MEDICATION: The patient received monitored anesthesia care. PERFORMING PHYSICIAN: Cherise Michael M.D. ASSISTANTS: 1. [facility]. [facility] 2. Arely Jaimes RN. 3. Luci Rust RN 4. Brook Hooks CRNA. 5. Jimmy Corbett M.D. (anesthesia). COMPLICATIONS: There were no complications. ESTIMATED BLOOD LOSS: 1-2 mL. SPECIMENS REMOVED: 1. Duodenal biopsy. 2. Gastric aspirate. 3. Gastric biopsy. 4. Esophageal brushings. FINDINGS: After sedation was achieved, the upper endoscope was inserted to the 2nd portion of the duodenum. The hypopharynx appeared grossly normal. In the tubular esophagus, there was grade D erosive esophagitis that began at the upper esophagus and extended the entire length of the esophagus. There was also skin sloughing and therefore esophageal brushings were obtained. There was a deep serpiginous ulcer at the GE junction and the Schatzki ring with no evidence of obstruction. The GE junction was measured at 40 cm from the incisors. There was a large hiatal hernia that spanned from 40-45 cm. In the gastric lumen, there was erosive gastritis with 5 acute ulcers with serpiginous bases. There was no stigmata of active bleeding. However, there were scattered deep erosions and superficial ulcers in the antrum, fundus and body. Multiple biopsies were taken. The pylorus was very inflamed but patent. In the duodenum, there was duodenitis with a large duodenal ulcer in the bulb with a superficial whitish base and no stigmata of bleeding. Biopsies were taken. The second portion of the duodenum was inflamed but there were no visible ulcers. After the exam was complete, the lumen was decompressed and the scope was removed without incident. IMPRESSION: 1. Grade D erosive esophagitis. 2. Distal esophageal ulcer. 3. Schatzki ring. 4. Hiatal hernia. 5. Erosive gastritis. 6. Five antral ulcers. 7. Superficial ulcers in the gastric fundus. 8. Duodenal bulb ulcer. RECOMMENDATION: 1. Await biopsy results. 2. Continue Protonix 40 mg IV q.12 hours. 3. Add Carafate 1 g p.o. 4 times a day. 4. Consider repeat EGD in 12 weeks. 5. Given the number of ulcers, I will check a serum gastrin level and gastric pH. 6. Will proceed with a colonoscopy as previously scheduled. cc: Andry Sarmiento MD MTDD
--- NOTE | 2016-07-31 21:15 | OPERATIVE NOTE ---
PROCEDURE DATE: 07/27/2016 REFERRING PHYSICIAN: Cee Tang M.D. REFERRING PHYSICIAN: Andry Sarmiento M.D. INDICATIONS FOR PROCEDURE: 1. Nausea with vomiting. 2. Diarrhea. 3. Abdominal pain. PROCEDURE PERFORMED: 1. Colonoscopy with polypectomy. 2. Colonoscopy with biopsy. 3. Stool aspiration. CONSENT: Informed consent was obtained from the patient prior to the procedure. The risks, benefits, and alternatives were discussed. MEDICATION: The patient received monitored anesthesia care. PERFORMING PHYSICIAN: Cherise Michael M.D. ASSISTANTS: 1. [facility] 2. Arely Jaimes RN. 3. Luci Soto RN. 4. Marleni Hooks CRNA. 5. Jimmy Corbett M.D. (anesthesia). COMPLICATIONS: There were no complications. ESTIMATED BLOOD LOSS: 1-2 mL. CECAL INTUBATION TIME: 14 minutes. WITHDRAWAL TIME: 20 minutes. PREP QUALITY: Fair to poor. FINDINGS: After the EGD was performed, the pediatric colonoscope was inserted to the cecum. The appendiceal orifice and ileocecal valve appeared endoscopically normal. There were 2 ascending colon polyps that ranged in size from 5-10 mm that were removed by snare cautery. There was diffuse erythema in the colon consistent with pancolitis. Random colon biopsies were obtained. There was diverticulosis in the descending and sigmoid colon. There was greater than a 10 mm polyp at 65 cm that was removed by snare cautery. The remainder of the left colon appeared normal except for the aforementioned diverticulosis. In the upper rectum, there were grade 1 internal hemorrhoids. On retroflexed view, there were medium external hemorrhoids. After the exam was complete, the lumen was decompressed and the scope was removed without incident. SPECIMENS REMOVED: 1. Ascending colon polyps x2. 2. Random colon biopsies. 3. Stool aspirate. 4. Polyp at 65 cm. IMPRESSION: 1. Colon polyps in the ascending colon. 2. Pancolitis. 3. Diverticulosis. 4. Large polyp at 65 cm status post snare cautery. 5. Grade 1 internal hemorrhoids. 6. Medium external hemorrhoids. RECOMMENDATION: 1. Await biopsy results. 2. We will check a stool lactoferrin and a fecal white blood cell in light of the diarrhea. 3. Because of the unexplained erythema, I will begin Levaquin and Flagyl for the next 10 days. She will receive Levaquin 750 mg 1 p.o. daily for 10 days and Flagyl 250 mg q.8 hours for 10 days. 4. We await biopsy results. 5. We will have the patient return to clinic in 4-6 weeks to assess interval progress and review the results of her testing. cc: MD Cee Chavez MD David Francis, MD MTDD
== END 2016-07-29 12:53 | disposition home or self-care (01) ==
LOC: ED 11:20 → 3N 17:18
PROVIDERS: ATTEND Internal Medicine

== ENCOUNTER 2018-07-26 06:00 | Inpatient (IN) ==
[2018-07-26 07:42] LABS: URINE SOURCE CATH
[2018-07-26 07:45] LABS: BILIRUBIN URINE NEGATIVE (NEGATIVE); BLOOD URINE NEGATIVE (NEGATIVE); COLOR YELLOW; GLUCOSE URINE NEGATIVE (NEGATIVE); KETONE URINE NEGATIVE (NEGATIVE); LEUKOCYTES URINE MODERATE (NEGATIVE); NITRITE URINE POSITIVE (NEGATIVE); PH URINE 6.5; PROTEIN URINE TRACE mg/dL (NEGATIVE); SP GRAVITY URINE 1.015; TURBIDITY URINE HAZY (CLEAR); UROBILINOGEN URINE NORMAL (NORMAL)
[2018-07-26 07:47] LABS: BASO# 0.03 X1000 (0.0-0.2); BASO% 0.2 % (0.0-0.8); EOS# 0.07 X1000 (0.0-0.7); EOS% 0.6 % (0.0-10.0); HEMATOCRIT 39.3 % (37.0-47.0); HEMOGLOBIN 12.8 g/dL (12.0-16.0); IMM GRAN# 0.04 X1000 (0.0-0.04); IMM GRAN% 0.3 % (0.0-0.5); LYMPH# 2.21 X1000 (1.2-3.4); MCH 30.2 PG (27-31); MCHC 32.6 g/dL (33-37); MCV 92.7 FL (81-99); MONO# 1.16 X1000 (0.11-0.59); MONO% 9.4 % (1.7-9.3); MPV 10.5 FL (7.4-10.4); NEUT# 8.77 X1000 (1.4-6.5); NEUT% 71.5 % (42.2-75.2); PLT 302 X1000 (130-400); RBC 4.24 XMIL (4.2-5.4); RDW 12.8 % (11.5-14.5); WBC 12.28 X1000 (4.8-10.8)
[2018-07-26 07:47] LABS: UR EPITHELIAL CELLS <10 /HPF (<10); URINE BACTERIA 4+ /HPF; URINE RBC <10 /HPF (<10); URINE WBC TNTC /HPF (<10)
[2018-07-26] MEDS ORDERED: ROCEPHIN 2 GM in NS 50 ML IV ONE (07:51)
[2018-07-26] MEDS ORDERED: NS 1,000 ML IV ONE (07:51)
[2018-07-26 07:55] LABS: AGAP 10; ALB/GLOB RATIO 1.5; ALKALINE PHOSPHATASE 116 U/L (32-104); BUN 10 mg/dL (8-22); CALCIUM 9.3 mg/dL (8.8-10.2); CHLORIDE 105 mmol/L (98-107); COSMO 279; CREATININE 0.7 mg/dL (0.5-0.9); ESTIMATED GFR > 60; GLUCOSE 101 mg/dL (70-104); GOT 20 U/L (10-30); GPT 17 U/L (10-36); POTASSIUM 3.6 mmol/L (3.5-5.1); SODIUM 140 mmol/L (136-145); TCO2 25 mmol/L (25-35); TOTAL BILIRUBIN 0.51 mg/dL (0.20-1.00); TOTAL PROTEIN 6.6 g/dL (6.3-8.3)
--- NOTE | 2018-07-26 09:45 | PROVIDER DOCUMENTATION ---
This chart was entered by Nichelle Frederick Scribe, acting as scribe for Andry Chau MD. HPI-General Adult - General Chief Complaint: Altered Mental Status Stated Complaint: ams Time Seen by Provider: 07/26/18 06:18 Source: family Allergies/Adverse Reactions: Patient Allergies Allergy/AdvReac Type Severity Reaction Status Date / Time No Known Allergies Allergy Verified 06/29/18 12:30 Home Medications: Home Medication List Medication Instructions Recorded Confirmed Last Taken Type Fluoxetine HCl 40 mg PO QAM 02/12/14 07/24/16 07/24/16 08:00 History Levothyroxine Sodium 125 mcg PO QAM 02/12/14 07/24/16 07/24/16 08:00 History LISINOpril [Prinivil] 10 mg PO DAILY #30 tablet 02/15/14 07/24/16 07/24/16 08:00 Rx Omeprazole [Prilosec] 40 mg PO DAILY@0700 #14 capsule 04/20/15 07/24/16 07/24/16 08:00 Rx Zinc Sulfate 220 mg PO DAILY #30 capsule 04/20/15 07/24/16 07/24/16 08:00 Rx Amlodipine [Norvasc] 5 mg PO BID #60 tablet 07/29/16 Unknown Rx Carvedilol [Coreg] 6.25 mg PO Q12HR #60 tablet 07/29/16 Unknown Rx Sucralfate [Carafate Liquid] 1 gm PO Q6H #120 udc 07/29/16 Unknown Rx Cephalexin 500 mg PO TID #21 cap 07/01/18 Unknown Rx - History of Present Illness -Gen Adult Nature of Presenting Problems: Patient is a 78 year old female who presents to the ED via EMS for frequent falls. Patient's family states patient has a history of dementia. Patient's family states patient was recently admitted for a fall a few weeks ago. Patient's daughter states she is unable to care for the patient at home. Patient's daughter denies patient recently having a head injury. Location of Pain/Injury: reports: none Pain Radiation: reports: no radiation Quality of Pain: reports: none Severity: reports: mild Onset/Duration: reports: gradual Timing: reports: still present Context/Activities at Onset: reports: light activity Modifying Factors: improves with: nothing Associated Symptoms: reports: denies symptoms Similar Symptoms Previously?: Yes Recently seen or treated by another doctor?: Yes Review of Systems - Adult - REVIEW OF SYSTEMS - ADULT Constitutional: reports: no symptoms reported Eyes: reports: no symptoms reported Ears, Nose, Mouth & Throat: reports: no symptoms reported Cardiovascular: reports: no symptoms reported Respiratory: reports: no symptoms reported Gastrointestinal: reports: no symptoms reported Genitourinary: reports: no symptoms reported Musculoskeletal: reports: no symptoms reported Integumentary: reports: no symptoms reported Neurological: reports: no symptoms reported Psychiatric: reports: no symptoms reported Endocrine: reports: no symptoms reported Hematologic/Lymphatic: reports: no symptoms reported Allergic/Immunologic: reports: no symptoms reported All Other Systems: Reviewed and Negative Past History - Adult - PAST MEDICAL HISTORY-ADULT Review of Records: reports: Nursing Assessment Review, Medications Reviewed, Social history reviewed & non-contributory. Major Childhood Illnesses: reports: denies history Cardiovascular: reports: HTN Respiratory: reports: denies history Gastrointestinal: reports: GERD Obstetrical/Gynecological: reports: denies history Genitourinary: reports: denies history Musculoskeletal: reports: denies history Neurological: reports: denies history Psychiatric: reports: depression Endocrine/Immune: reports: thyroid disorder Other Conditions: reports: denies history - PRIOR SURGERIES/PROCEDURES Surgical/Procedure History: reports: reviewed, not pertinent, cholecystectomy, other (neck spur) - IMMUNIZATION STATUS Childhood Immunizations: See Nurse Assessment Flu Vaccine: See Nurse Assessment - FAMILY HISTORY Family History: reviewed, not pertinent - SOCIAL HISTORY Smoking: denies Substance Use: denies Living Situation: family Physical Exam-General - PHYSICAL EXAM-ADULT Initial Vital Signs Reviewed: Yes - CONSTITUTIONAL General Appearance: alert, no apparent distress - EYES Eyes: PERRL/EOMI - HEAD, EARS, NOSE, MOUTH & THROAT HENMT: moist mucous membranes - NECK Neck: normal inspection - RESPIRATORY Respiratory: chest non-tender, lungs clear, normal breath sounds - CARDIOVASCULAR Cardiovascular: normal peripheral pulses, regular rate, rhythm - GASTROINTESTINAL (ABDOMEN) Abdominal Exam: normal bowel sounds, non tender, soft - MUSCULOSKELETAL Extremity: non-tender, normal inspection - SKIN Integumentary: normal color, normal turgor, warm/dry - NEUROLOGIC Neurologic: grossly normal - PSYCHIATRIC Psych/Mental Status: normal mood/affect Progress - PLAN OF CARE/RESULTS Progress/Plan/Lab Results: Orders Category Date Time Status Straight Catheterization ORDERED Care 07/26/18 06:51 Active CBC WITH DIFF [HEME] Stat Lab 07/26/18 06:51 Uncollected CMP [COMPREHENSIVE METABOLIC PANEL] [CHEM] Stat Lab 07/26/18 06:51 Uncollected UA NIMS W/REFLEX CULT [URINALYSIS] Stat Lab 07/26/18 06:51 Uncollected Result Diagrams: 07/26/18 07:20 07/26/18 07:20 - REASSESSMENT Reassessment #1 Time Reassessed: 09:45 Reassessment Comment: ALERT. NO DISTRESS. NORMAL PERIPHERAL PERFUSION - EKG 1 Time of EKG reading by physician:: 07:24 EKG Read and Signed by:: Andry Chau EKG Interpretation (*Must complete 3 of following elements*): Abnormal Rate: 83 Rhythm: normal sinus rhythm MT Interval: normal Comments: nonspecific ST and T wave abnormality. - CONSULTS/PCP/HOSPITALIST Notification #1 *Consult/PCP/Hospitalist*: KYLE Mcgee for Hospitalist Time Discussed: 09:34 (Dr. Keyes accepted admit) Reason/Comments: Dr. Chau consulted with Arely about patient Consult Disposition: Admit Departure - Departure Date of Disposition Decision: 07/26/18 Time of Disposition Decision: 09:34 DIAGNOSIS: UTI (urinary tract infection), Leukocytosis, Altered mental status Disposition: ADMITTED INPATIENT 09 Certified Medical Emergency: Emergent Condition: Stable Referrals and Follow-Ups: Andry Sarmiento MD [Primary Care Provider] - - Critical Care Note This patient required my direct & personal management of CC.: No Attestation - Physician/ LORNA Attestation Patient care was provided by Advanced Practice Provider:: No The physician spent face to face time with patient:: Yes Advanced Practice Provider documentation review:: Supervising physician onsite and consulted in the evaluation and care of this patient. The physician did have a face to face encounter with the patient. This chart was documented by the indicated scribe, (Nichelle Frederick Scribe) and accurately reflects the services I performed and decisions made by me, Andry Chau MD, as attested by the provider's signature.
--- NOTE | 2018-07-26 10:53 | EKG Report ---
Test Performed on : 07/26/2018 07:24:45 AM Test Reason : AMS Blood Pressure : / mmHG Vent. Rate : 083 BPM Atrial Rate : 083 BPM P-R Int : 148 ms QRS Dur : 072 ms QT Int : 374 ms P-R-T Axes : 064 041 054 degrees QTc Int : 439 ms Normal sinus rhythm. Nonspecific ST and T wave abnormality Abnormal ECG When compared with ECG of 30-JUN-2018 07:05, No significant change was found Unconfirmed Result
--- NOTE | 2018-07-26 11:16 | Diag Imaging Result Doc PS360 ---
EXAM: CT HEAD W/O CONTRAST - 07/26/2018 HISTORY: AMS, freq falls TECHNIQUE: CT head without contrast COMPARISON: 06/29/2018 FINDINGS: There are atrophic changes and chronic microvascular ischemic changes similar to prior. There is no indication of recent infarct, although acute infarcts may not be immediately visible. There is no evidence of intracranial hemorrhage, mass effect, or midline shift. There is no evidence of skull fracture. IMPRESSION: No visible acute intracranial abnormality. No hemorrhage or mass effect. This exam was performed using automated exposure control, adjustment of mA or kV according to patient size, and/or use of iterative reconstruction technique. Electronically signed by Jhonny Stark 07/26/2018 11:13 AM
[2018-07-26] MEDS ORDERED: ZOFRAN IV PRN (11:32)
[2018-07-26] MEDS ORDERED: TYLENOL PO PRN (11:32)
--- NOTE | 2018-07-26 11:38 | HISTORY AND PHYSICAL ---
PRIMARY CARE PROVIDER: Dr. Andry Sarmiento. CHIEF COMPLAINT: Altered mental status, frequent fall, generalized weakness. HISTORY OF PRESENT ILLNESS: Ms Franklin is a 78-year-old female, who carries a past medical history of hard of hearing, hypertension, hypothyroidism, depression, coronary artery disease, hepatic steatosis, dyslipidemia, and dementia, who was brought to the ED by EMS. Per daughter's report, she has been living with her and states that over the past few days she has had increasing altered mental status, talking out of her head, seeing things that are not there, which is a deviation from her normal dementia. She felt she had another urinary tract infection. She called her primary care provider to see if they could get her an antibiotic. However, she had a fall yesterday and 3 falls this morning, frequent urination with incontinence. In the ED, she was found to have an elevated white count of 12, as well as 4+ bacteria in her urinalysis, too numerous to count WBCs, positive for nitrates. She was started on IV fluids and IV antibiotics. We will admit her to the medical telemetry floor. Consult Commercial Sales Specialist and Physical Therapy and continue treatment of her urinary tract infection. We will also check a chest x-ray. She has had a cough, but no productive sputum, fever, chills, as well as head CT for multiple falls and altered mental status. REVIEW OF SYSTEMS: A 14-point review of systems completely negative, except for those mentioned in HPI. Denies any fever, chills, vomiting, diarrhea, chest pain, palpitations, shortness of breath. She did have some urinary frequency and incontinence, but no dysuria. Cough, but no sputum production. PAST MEDICAL HISTORY: 1. Dementia. 2. Hypertension. 3. Hard of hearing. 4. Hypothyroidism. 5. Depression. 6. Coronary artery disease. 7. Hepatic steatosis. 8. Dyslipidemia. PAST SURGICAL HISTORY: 1. Hemorrhoidectomy. 2. Cervical diskectomy. 3. Laparoscopic cholecystectomy. 4. Anal fissure repair. SOCIAL HISTORY: She is a . She lives with her daughter. 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 She again lives in [place] with her daughter. There is no tobacco, alcohol or illicit drug use. FAMILY HISTORY: Positive for hypertension. HOME MEDICATIONS: Have not been verified. ALLERGIES: No known drug allergies. PHYSICAL EXAMINATION: VITAL SIGNS: Temperature is 97.2 degrees, heart rate 88, respirations 26, blood pressure 138/85, O2 is 97% on room air. GENERAL: Ms. Franklin is a pleasant 78-year-old female, who is lying in the bed picking at her blanket and O2 saturation monitor, in no acute distress. HEENT: Atraumatic, normocephalic. PERRL. NECK: Supple. Trachea midline. CVS: S1, S2 appreciated. No murmurs, gallops, rubs noted. RESPIRATORY: Lung sounds decreased in all lung villeda. No rales, rhonchi, or wheezes noted. GI: Soft, nontender, nondistended. Positive bowel sounds 4 quadrants EXTREMITIES: Lower extremities are negative for edema. Bilateral pedal pulses are palpable. NEURO: Patient is somewhat awake in the bed. She does try to answer questions, then she falls back asleep easily. She will talk to herself. She does fidget. She will follow simple commands. Answers simple questions. She knows her name and date of and that she is in the hospital. DIAGNOSTIC DATA: Pending head CT and chest x-ray. LABORATORY DATA: Pending urine culture. Pending blood cultures. CBC: White count is 12, H and H 12 and 39, platelet count is 302. Chemistry: Sodium 140, potassium 3.6, BUN 10, creatinine 0.7, blood glucose 101, plasma lactate was 0.8. Urinalysis was positive for nitrates, 4+ bacteria, too numerous to count WBCs. ASSESSMENT AND PLAN: 1. Urinary tract infection with altered mental status. The patient has also had some reported frequent falls over the last few days and increase in her confusion apart from her dementia, and we will go ahead and check a head CT to rule out any acute process, and will continue with intravenous antibiotics and intravenous hydration. 2. Altered mental status believed to be secondary to urinary tract infection. However, we will rule out any acute findings with head CT. 3. Reported cough. The patient was discharged from the hospital 25 days ago. We will go ahead and check a chest CT to rule out any pneumonia. 4. Hypertension, controlled. We will continue home regimen when medications are reconciled. 5. Hypothyroidism. Will continue Synthroid. 6. Situational depression. 7. Coronary artery disease, stable. No complaints of chest pain. 8. Recently admitted for syncope and urinary tract infection secondary to Escherichia coli. The patient was sent home with home health, physical therapy, occupational therapy. Again, we will bring Commercial Sales Specialist on board for continued generalized weakness and deconditioning, and continue with her physical therapy and await their recommendations. They were considering possible rehabilitation. 9. Further recommendations to follow physician evaluation, laboratory, and diagnostic data. Dictated by KYLE Johnson for Chito Keyes MD cc: MD Andry Mejia MD [facility] HEALTH CENTERScottie
[2018-07-26] MEDS ORDERED: FLU VACCINE IM ONE (11:49)
[2018-07-26] MEDS: NS 1,000 ML IV SCH ×2 (11:57→18:36)
[2018-07-26] MEDS: LOVENOX SUBQ SCH (12:11)
--- NOTE | 2018-07-26 12:36 | Diag Imaging Result Doc PS360 ---
EXAM: CHEST-PORTABLE HISTORY: cough TECHNIQUE: Portable AP chest single view COMPARISON: 06/29/2018 FINDINGS: The lungs are well expanded. The right hemidiaphragm is elevated. The heart is not enlarged. The vessels are not distended. There are no infiltrates. No effusion identified. There has been surgery to the lower neck. IMPRESSION: No pneumonia. Electronically signed by Kang Casas 07/26/2018 12:34 PM
[2018-07-26] MEDS: HALDOL IV PRN (21:11)
[2018-07-26] MEDS: SEROQUEL PO SCH (21:11)
[2018-07-27] MEDS: HALDOL IV PRN (02:37)
[2018-07-27 05:50] LABS: BASO# 0.02 X1000 (0.0-0.2); BASO% 0.3 % (0.0-0.8); EOS# 0.12 X1000 (0.0-0.7); EOS% 1.6 % (0.0-10.0); HEMATOCRIT 38.4 % (37.0-47.0); HEMOGLOBIN 12.5 g/dL (12.0-16.0); IMM GRAN# 0.02 X1000 (0.0-0.04); IMM GRAN% 0.3 % (0.0-0.5); LYMPH# 2.32 X1000 (1.2-3.4); LYMPH% 30.1 % (20.5-51.1); MCH 30.8 PG (27-31); MCHC 32.6 g/dL (33-37); MCV 94.6 FL (81-99); MONO# 0.75 X1000 (0.11-0.59); MONO% 9.7 % (1.7-9.3); MPV 10.7 FL (7.4-10.4); NEUT# 4.48 X1000 (1.4-6.5); PLT 261 X1000 (130-400); RBC 4.06 XMIL (4.2-5.4); RDW 12.9 % (11.5-14.5); WBC 7.71 X1000 (4.8-10.8)
[2018-07-27 06:11] LABS: AGAP 10; BUN 8 mg/dL (8-22); CALCIUM 8.8 mg/dL (8.8-10.2); CHLORIDE 109 mmol/L (98-107); COSMO 285; CREATININE 0.7 mg/dL (0.5-0.9); ESTIMATED GFR > 60; GLUCOSE 93 mg/dL (70-104); MAGNESIUM 1.7 mg/dL (1.5-2.7); POTASSIUM 3.6 mmol/L (3.5-5.1); SODIUM 144 mmol/L (136-145); TCO2 25 mmol/L (25-35)
[2018-07-27] MEDS: NS 1,000 ML IV SCH ×3 (07:28→18:37)
--- NOTE | 2018-07-27 07:34 | Diag Imaging Result Doc PS360 ---
EXAM: CHEST-PORTABLE INDICATION: follow up TECHNIQUE: One view COMPARISON: 07/26/2018 FINDINGS: The lungs are grossly clear. There is no discrete pleural fluid collection or pneumothorax. The cardiomediastinal silhouette and central vasculature are grossly unremarkable. IMPRESSION: No evidence of acute pathology by plain radiograph. Electronically signed by Fantasma Peng 07/27/2018 7:32 AM
[2018-07-27] MEDS: ROCEPHIN 1 GM in NS 50 ML IV SCH ×2 (08:45→10:52)
[2018-07-27] MEDS: LOVENOX SUBQ SCH (10:52)
--- NOTE | 2018-07-27 12:39 | PROGRESS NOTE ---
DATE: 07/27/2018 SUBJECTIVE: Ms. Franklin had a good night. We tried some Seroquel last night and it seemed to work well. She is very pleasant and awake, and feels comfortable. She said she feels good this morning. OBJECTIVE: Temperature 97.8 degrees, pulse 80, respirations 16, blood pressure 153/83. Pupils are equal and round. Lungs are clear in all lung villeda. Cardiovascular Examination: Regular rhythm and rate without murmur or S3. Abdomen is soft. Skin is warm and dry urine. Output is 4700 mL. Chest x-ray from this morning, no evidence of acute pathology. No sign of infiltrates. CT of her head without contrast, no visible acute intracranial abnormality. No hemorrhage or mass defect. ASSESSMENT AND PLAN: 1. Urinary tract infection, altered mental status. Presented with some increased confusion, underlying dementia. We tried some Seroquel. It seemed to work pretty well. She seems to be eating and drinking okay. 2. Reported cough. I do not see any evidence of pneumonia. May have had some bronchial irritation. 3. Hypertension, controlled. 4. Hypothyroidism. Continue her Synthroid. Appears to be euthyroid. 5. Situational depression. 6. Underlying dementia. 7. Coronary artery disease. No sign of active ischemia. 8. Admitted with questionable syncope, urinary tract infection secondary to Escherichia coli. On her last admission, she was sent back for physical therapy. We will bring social service back on board. I am not sure what the plan is, whether she will be able to go home. I think they may need some help. We will see how we progress. REVIEW OF ORDERS: Looking over her orders, Seroquel 100 mg at bedtime, Lovenox 30 mg subcutaneous q.24 hours, normal saline at 75 mL an hour, ceftriaxone 1 g q.24 hours, and then normal saline. Physical therapy is already involved. health services rn are already involved as well. cc: Ja Vieira MD
[2018-07-27] MEDS: SEROQUEL PO SCH ×2 (21:09→21:14)
[2018-07-28] MEDS: NS 1,000 ML IV SCH ×2 (05:31→16:29)
[2018-07-28] MEDS: ROCEPHIN 1 GM in NS 50 ML IV SCH ×2 (08:27→10:54)
[2018-07-28] MEDS: LOVENOX SUBQ SCH (11:24)
--- NOTE | 2018-07-28 13:33 | PROGRESS NOTE ---
DATE: 07/28/2018 SUBJECTIVE: She seemed to be comfortable today, and said she felt better. She was sleeping and easy to arouse this morning. Her night was uneventful. We started her on some Seroquel, which she did not need any p.r.n. for agitation or confusion last night. OBJECTIVE: Temperature 98.7 degrees, pulse 86, respirations 18, blood pressure 168/84. Pupils are equal and round. Lungs are clear in all lung villeda. Cardiovascular regular rhythm and rate without murmur or S3. Abdomen is soft. Skin is warm and dry. ASSESSMENT AND PLAN: 1. Urinary tract infection, and altered mental status. This seems to be doing better. We did start her on some Seroquel. Urinary tract infection appears to be well treated. 2. Reported cough. No evidence of pneumonia or infiltration on chest x-ray or upper respiratory tract infection. I suspect postnasal drip and acute bronchitis from the nasal drip. 3. Hypertension, controlled. 4. Hypothyroidism appears to be euthyroid on Synthroid. 5. Situational depression. 6. Underlying dementia. 7. History of coronary artery disease. No sign of active ischemia. 8. Questionable syncopal event. We are treating her for urinary tract infection secondary to E. Coli from her last admission. She had urine culture at this time on 07/26/2017, and it grew out Citrobacter which is resistant to cefazolin, but sensitive to Levaquin. She is doing much better clinically. I will switch her to Levaquin by mouth, and discuss with her daughter the plans for discharge. cc: Ja Vieira MD
[2018-07-28] MEDS: LEVAQUIN PO SCH (13:55)
[2018-07-28] MEDS: SEROQUEL PO SCH (21:23)
[2018-07-29] MEDS: NS 1,000 ML IV SCH (05:12)
[2018-07-29] MEDS: LEVAQUIN PO SCH (09:24)
[2018-07-29 12:15] VITALS: BP 160/90
--- NOTE | 2018-07-29 14:16 | DISCHARGE SUMMARY ---
ADMISSION DATE: 07/26/2018 DISCHARGE DATE: 07/29/2018 HISTORY: This is a 78-year-old who has past medical history of hard of hearing, hypertension, hypothyroidism, depression, coronary artery disease, hepatic steatosis, dyslipidemia, and dementia, was brought to the emergency room by EMS. Per daughter's report, she had been living with her and states that over the past few days she has had increasing altered mental status, talking out of her head, seeing things that were not there that seemed to get worse towards the evening time and they did know she has some dementia, but seemed to be more progressed in the last several days to several weeks. [place] she might have another urinary tract infection. She went to her primary care physician who is Andry Sarmiento to see if they could get an antibiotic. She had several falls, 3 falls the morning of admission. She had increased frequency of urination, urination, incontinence. [place] [address], 4+ bacteria, and too numerous to count white blood cells so admitted to the hospital. HOSPITAL COURSE: In the hospital the 1st evening, she had significant sundowning with agitation and delirium, so we tried some Seroquel and it seemed to work. We did have to use some Haldol the 1st evening, but the next 2 evenings the Seroquel seemed to work well. She was more awake, more alert, able to get up and get around. Her urinary tract infection grew out Citrobacter braakii greater than 100,000 which was sensitive to cefepime and Levaquin and she felt much better, was comfortable and was requesting to go home so we discharged her on 07/29/2018. DISCHARGE MEDICATIONS: I will leave her on Levaquin 500 mg a day for another 5 days. She will take Seroquel 100 mg at bedtime and I gave her prescription for that and then she can go back on her levothyroxine 150 mcg daily. We will have her on her fluoxetine 40 mg q.a.m. and Prinivil 10 mg daily, Prilosec 40 mg a day and she was taking Carafate 1 g before meals and at bedtime. cc: Ja Vieira MD
[2018-07-29] MEDS: LOVENOX SUBQ SCH (14:38)
== END 2018-07-29 15:07 | DRG 690 ==
LOC: SUPCPDRO → ED 06:00 → 4N 11:09
PROVIDERS: ATTEND Emergency Medicine
CPT/HCPCS: 51701; 70450; 71010; 71045; 80048; 80053; 81001; 83605; 83735; 84145; 85025; 87040; 87077; 87088; 87186; 93005; 96365; 96366; 97162; 97530; 99285; A9270; J0696; J1630; J1650; J7030; P9612

== ENCOUNTER 2018-10-26 01:05 | Inpatient (IN) ==
--- NOTE | 2018-10-26 02:34 | PROVIDER DOCUMENTATION ---
This chart was entered by Renetta Hernandez Scribe, acting as scribe for Prerna Dias MD. HPI-General Adult - General Chief Complaint: Altered Mental Status Stated Complaint: AMS Time Seen by Provider: 10/26/18 01:27 Source: patient, family Allergies/Adverse Reactions: Patient Allergies Allergy/AdvReac Type Severity Reaction Status Date / Time No Known Allergies Allergy Verified 10/26/18 01:47 Home Medications: Home Medication List Medication Instructions Recorded Confirmed Last Taken Type Fluoxetine HCl 40 mg PO QAM 02/12/14 10/26/18 10/25/18 History Levothyroxine Sodium 150 mcg PO QAM 02/12/14 10/26/18 10/25/18 History LISINOpril [Prinivil] 10 mg PO DAILY #30 tablet 02/15/14 10/26/18 10/25/18 Rx Omeprazole [Prilosec] 40 mg PO DAILY@0700 #14 capsule 04/20/15 10/26/18 10/25/18 Rx Sucralfate [Carafate] 1 gm PO AC + HS 07/26/18 10/26/18 10/25/18 History Quetiapine [Seroquel] 100 mg PO QHS 30 Days #30 tab 07/29/18 10/26/18 2 Days Ago Rx ~10/24/18 Ciprofloxacin [Cipro] 250 mg PO BID 10/26/18 10/26/18 10/25/18 History Phenazopyridine HCl [Pyridium] 200 mg PO TID 10/26/18 10/26/18 10/25/18 History - History of Present Illness -Gen Adult Nature of Presenting Problems: 78 y/o female presents to ED with AMS and cough onset 3 days ago. Family of pt reports she has hx dementia and has had a UTI over the past week. Family states she has experienced N/V/D since last night. Family reports she fell twice today and that "nothing she said made sense". She has been found down in in the house on two other occasions in the last 3 days. Pt is alert but mumbles words that are inappropropriate to questions asked. Denies any fevers or chills. Has had multiple episodes of diarrhea and nausea. Location of Pain/Injury: reports: none Pain Radiation: reports: no radiation Quality of Pain: reports: none Severity: reports: mild Onset/Duration: reports: 1 week ago, this evening, last night Timing: reports: still present Context/Activities at Onset: reports: none Modifying Factors: improves with: nothing Associated Symptoms: reports: cough, diarrhea, nausea, vomiting, other (AMS; UTI sx; falls) Similar Symptoms Previously?: No Recently seen or treated by another doctor?: No Review of Systems - Adult - REVIEW OF SYSTEMS - ADULT Constitutional: reports: other (AMS; falls). denies: chills, fever Eyes: reports: no symptoms reported Ears, Nose, Mouth & Throat: reports: no symptoms reported Cardiovascular: denies: chest pain, palpitations Respiratory: reports: cough. denies: shortness of breath Gastrointestinal: reports: diarrhea, nausea, vomiting. denies: abdominal pain Genitourinary: reports: other (UTI sx). denies: incontinence Musculoskeletal: denies: back pain, joint pain Integumentary: reports: no symptoms reported Neurological: reports: other (AMS). denies: dizziness/vertigo, seizure Psychiatric: reports: no symptoms reported Endocrine: reports: no symptoms reported Hematologic/Lymphatic: reports: no symptoms reported Allergic/Immunologic: reports: no symptoms reported All Other Systems: Reviewed and Negative Past History - Adult - PAST MEDICAL HISTORY-ADULT Review of Records: reports: Old Records Reviewed, Nursing Assessment Review, Medications Reviewed Major Childhood Illnesses: reports: denies history Cardiovascular: reports: HTN Respiratory: reports: denies history Gastrointestinal: reports: GERD Obstetrical/Gynecological: reports: denies history Genitourinary: reports: denies history Musculoskeletal: reports: denies history Neurological: reports: dementia Psychiatric: reports: depression Endocrine/Immune: reports: thyroid disorder (hypo) Other Conditions: reports: denies history - PRIOR SURGERIES/PROCEDURES Surgical/Procedure History: reports: reviewed, not pertinent, cholecystectomy, other (neck spur) - IMMUNIZATION STATUS Childhood Immunizations: See Nurse Assessment Flu Vaccine: See Nurse Assessment - FAMILY HISTORY Family History: reviewed, not pertinent - SOCIAL HISTORY Smoking: non-smoker Substance Use: none/never Alcohol Use Frequency: never Living Situation: family Physical Exam-General - PHYSICAL EXAM-ADULT Initial Vital Signs Reviewed: Yes (low O2 sat; pt not on home O2) - CONSTITUTIONAL General Appearance: appears well, alert, no apparent distress - EYES Eyes: PERRL/EOMI, pink conjunctivae - HEAD, EARS, NOSE, MOUTH & THROAT HENMT: normocephalic/atraumatic, moist mucous membranes, normal ENT inspection - NECK Neck: non-tender, full range of motion - RESPIRATORY Respiratory: chest non-tender, normal breath sounds, crackles (R base) - CARDIOVASCULAR Cardiovascular: tachycardia - GASTROINTESTINAL (ABDOMEN) Abdominal Exam: normal bowel sounds, non tender, soft - MUSCULOSKELETAL Back Exam: normal inspection, no CVA tenderness, no vertebral tenderness Extremity: normal range of motion, non-tender, normal gait - SKIN Integumentary: normal color, warm/dry - NEUROLOGIC Neurologic: grossly normal - PSYCHIATRIC Psych/Mental Status: normal mood/affect, disoriented x 3 Progress - PLAN OF CARE/RESULTS Progress/Plan/Lab Results: Vital Signs - 8 hr 10/26/18 01:21 Temperature 98.6 F Pulse Rate 107 H Respiratory Rate 20 Blood Pressure 154/90 O2 Sat by Pulse Oximetry 89 L Patient with WBC to 12. UA negative, CXR unchanged with no focal consolidation or fluid. CT head negative. CT abd/eplvis showing gastroenteritis and bronchitis. SpO2 down to 90% and patient does not take home O2. Labs mostly WNL, maybe some slight dehydration. Spoke to daughter about admission given AMS and frequent falls and she agrees. Spoke to Dr Lyon, investigations chief for hospitalist who accepted patient for admission. Further orders to be placed by their team. - EKG 1 Time of EKG reading by physician:: 03:07 EKG Read and Signed by:: Prerna Dias EKG Interpretation (*Must complete 3 of following elements*): Abnormal Rate: 102 Rhythm: sinus tachycardia [facility]: normal QRS: normal ST Wave: non-specific ST changes - XRAY 1 XRAY Study: Chest Impression: See EMR Report - CT/MRI 1 CT Study: Cervical Spine, Head Impression: Normal 2 CT Study: Abdomen, Pelvis Impression: See EMR Report (Bronchitis and gastroenteritis.) Departure - Departure Date of Disposition Decision: 10/26/18 Time of Disposition Decision: 05:54 DIAGNOSIS: Altered mental status, Fall, Colitis, Bronchitis, Dehydration, Hypoxia Disposition: ADMITTED INPATIENT 09 Certified Medical Emergency: Emergent Condition: Stable - Critical Care Note This patient required my direct & personal management of CC.: No Attestation - Physician/ LORNA Attestation Patient care was provided by Advanced Practice Provider:: No The physician spent face to face time with patient:: Yes Advanced Practice Provider documentation review:: Supervising physician onsite and consulted in the evaluation and care of this patient. The physician did have a face to face encounter with the patient. This chart was documented by the indicated scribe, (Renetta Hernandez, Efren) and accurately reflects the services I performed and decisions made by me, Prerna Dias MD, as attested by the provider's signature.
[2018-10-26] MEDS ORDERED: NS 1,000 ML IV ONE (05:57)
[2018-10-26] MEDS ORDERED: ZOFRAN IV PRN (06:02)
[2018-10-26] MEDS ORDERED: TYLENOL PO PRN (06:02)
[2018-10-26] MEDS: LOVENOX SUBQ SCH (06:21)
--- NOTE | 2018-10-26 06:42 | HISTORY AND PHYSICAL ---
PRIMARY CARE PHYSICIAN: Dr. Sarmiento. CHIEF COMPLAINT: Status post fall. Altered mental status. HISTORY OF PRESENTING ILLNESS: A 78-year-old female with a history of dementia, hypertension, hypothyroidism, GERD and depression, who presented to the emergency department with several days' history of having falls and being more confused. As per her family members, she was not acting right. The patient, at the time of my examination, was mildly confused and most of the history is obtained from the sister. During our initial evaluation in the ED, she was also found to be somewhat hypoxic with an O2 saturation around 89% and she was also tachycardic. Due to her presenting symptoms, she will require admission for further management. Upon further inquiry, the sister had stated that the patient was having nausea, vomiting, diarrhea for several days and it seemed to be worsening. At the time of my examination, patient was, however, able to deny any headache, fever, chills, chest pain, just stated that she did not feel well. PAST MEDICAL HISTORY: Includes dementia, hypertension, hypothyroidism, GERD, depression. PAST SURGICAL HISTORY: Cholecystectomy, cataract surgery. ALLERGIES: No known drug allergies. CURRENT MEDICATIONS: Include: 1. Fluoxetine 40 mg p.o. q.a.m. 2. Levothyroxine 150 mcg p.o. daily. 3. Lisinopril 10 mg p.o. daily. 4. Omeprazole 40 mg p.o. daily. 5. Quetiapine 100 mg p.o. daily. SOCIAL HISTORY: No history of smoking, alcohol or illicit drug use. FAMILY HISTORY: No history of coronary disease. REVIEW OF SYSTEMS: Fourteen point review of systems listed as in HPI. Other systems negative. PHYSICAL EXAMINATION: GENERAL: Cooperative, friendly female. She is somewhat confused but she is resting comfortably. VITAL SIGNS: Temperature 98.6 degrees, pulse 107, respirations 20, blood pressure 154/90. She is saturating 89%. HEENT: Atraumatic, normocephalic. Extraocular movements intact. PERRLA. NECK: No masses. CHEST: Bibasilar rales. CARDIOVASCULAR: Regular rate and rhythm. ABDOMEN: Soft. Positive bowel sounds. EXTREMITIES: No edema. NEUROLOGIC: She is awake, alert, oriented x1. GENITOURINARY: No bladder distention. SKIN: Warm. LABORATORIES AND STUDIES: WBC 12.3, hemoglobin 14.9, hematocrit 43.5, platelets 301,000. Sodium 134, potassium 4.0, chloride 96, CO2 is 22, BUN is 14, creatinine 0.8, glucose 131. CT of the head is negative as per ER physician. IMPRESSION: This is a 78-year-old female with a history of dementia, hypertension, hypothyroidism and gastroesophageal reflux disease, who presented to emergency department with several days' history of having falls and worsening mental status changes. She was evaluated in the emergency department. She was found to be somewhat hypoxic with O2 saturation of 89% and somewhat confused. Due to her presenting symptoms, she will require admission for further management. ASSESSMENT: 1. Status post frequent falls. 2. Altered mental status. 3. Hypoxia. 4. Bronchitis. 5. Nausea, vomiting, diarrhea. Suspected gastroenteritis. 6. Hypertension. 7. Dementia. PLAN: 1. We will admit patient to [facility]. 2. We will put patient on fall precautions. 3. Continue with neuro checks. 4. We will put patient on oxygen protocol. 5. We will continue with DuoNeb p.r.n. 6. Continue with supportive treatment with IV fluids, antiemetics as needed. 7. Monitor blood pressure closely. 8. We will restart home medications. 9. Put patient on DVT prophylaxis with SCD. 10. We will continue to follow and reassess and make further recommendation based on the patient's clinical course. cc: Jose Lyon MD
--- NOTE | 2018-10-26 07:18 | EKG Report ---
Test Performed on : 10/26/2018 03:05:00 AM Test Reason : fall Blood Pressure : / mmHG Vent. Rate : 102 BPM Atrial Rate : 102 BPM P-R Int : 134 ms QRS Dur : 070 ms QT Int : 348 ms P-R-T Axes : 057 039 058 degrees QTc Int : 453 ms Sinus tachycardia. Possible Left atrial enlargement Nonspecific ST abnormality Abnormal ECG When compared with ECG of 26-JUL-2018 07:24, No significant change was found Unconfirmed Result
[2018-10-26] MEDS ORDERED: DUONEB (A & A) INH PRN (07:30)
--- NOTE | 2018-10-26 07:59 | Diag Imaging Result Doc PS360 ---
CHEST-PORTABLE - 10/26/2018 INDICATION: multiple falls COMPARISON: 07/27/2018 FINDINGS: Lung volumes are moderately low with patchy bibasilar atelectasis. No focal infiltrates. Heart size and pulmonary vascularity is normal. No pneumothorax or pleural effusion. Stable hardware in the lower cervical spine. IMPRESSION: No acute disease. Electronically signed by Henri Melendez 10/26/2018 7:57 AM
--- NOTE | 2018-10-26 08:01 | Diag Imaging Result Doc PS360 ---
CT HEAD/C-SPINE W/O CONTRAST - 10/26/2018 INDICATION: multiple falls COMPARISON: 07/26/2018 , 03/11/2015 FINDINGS: Head CT: Stable moderate atrophy. Stable moderate periventricular white matter chronic microvascular disease. No intracranial mass or hemorrhage. The skull is intact. The sinuses are clear. Cervical spine: Numerous stable laminectomies at all levels from C3-C6. Stable posterior bilateral fusion rods at C3-C4-C5-C6. No hardware fracture or loosening. No evidence of fracture or subluxation. No significant central canal stenosis. IMPRESSION: No acute injury. This exam was performed using automated exposure control, adjustment of mA or kV according to patient size, and/or use of iterative reconstruction technique Electronically signed by Henri Melendez 10/26/2018 7:59 AM
--- NOTE | 2018-10-26 08:07 | Diag Imaging Result Doc PS360 ---
CT ABD/PELVIS W/IV CONT ONLY - 10/26/2018 INDICATION: colitis COMPARISON: 07/24/2016 FINDINGS: There is some patchy tree-in-bud nodular infiltrate in both lower lobes and the right middle lobe. This suggests bronchitis or bronchopneumonia. Heart size is normal with no pericardial effusion. The liver is very fatty. There are numerous stable hepatic cysts. Stable cholecystectomy clips. The pancreas, spleen, adrenals, and kidneys are normal. There is stable to slightly increasing nonspecific mesenteric edema. No bowel obstruction or wall thickening. The colon is mostly fluid-filled. Urinary bladder, uterus, and rectum are normal. No free air, free fluid, or lymphadenopathy. There are moderate degenerative changes of the spine. No acute or suspicious bony lesion. IMPRESSION: 1. Minimal bronchitis or bronchial pneumonia in the lung bases. 2. Fatty liver. Benign liver cysts. 3. Fluid-filled colon suggesting diarrheal illness but otherwise no acute disease in the abdomen. This exam was performed using automated exposure control, adjustment of mA or kV according to patient size, and/or use of iterative reconstruction technique Electronically signed by Henri Melendez 10/26/2018 8:05 AM
[2018-10-26] MEDS: PROZAC PO SCH (08:48)
[2018-10-26] MEDS: SYNTHROID PO SCH (08:50)
[2018-10-26] MEDS: PRINIVIL PO SCH (08:51)
[2018-10-26] MEDS: PYRIDIUM PO SCH ×3 (08:52→20:24)
[2018-10-26] MEDS: PRILOSEC PO SCH (08:53)
[2018-10-26] MEDS: CARAFATE PO SCH ×4 (08:54→20:24)
[2018-10-26] MEDS: DUONEB (A & A) INH SCH ×4 (10:48→22:45)
[2018-10-26 11:05] LABS: CHLORIDE 96 mmol/L (98-107); SODIUM 134 mmol/L (136-145); TCO2 22 mmol/L (25-35)
[2018-10-26 11:06] LABS: AGAP 16; ALB/GLOB RATIO 1.6; ALBUMIN 4.4 g/dL (3.5-5.0); ALKALINE PHOSPHATASE 108 U/L (32-104); AMYLASE 17 U/L (20-200); BUN 14 mg/dL (8-22); COSMO 271; CREATININE 0.8 mg/dL (0.5-0.9); GLUCOSE 131 mg/dL (70-104); GOT 15 U/L (10-30); GPT 15 U/L (10-36); LIPASE 8 U/L (13-60); TOTAL PROTEIN 7.2 g/dL (6.3-8.3)
[2018-10-26 11:10] LABS: CK INDEX 0.9 (0.0-2.5); CK-MB 1.59 ng/mL (0.0-5.0)
[2018-10-26 11:24] LABS: BASO% 0.2 % (0.0-0.8); HEMATOCRIT 43.5 % (37.0-47.0); HEMOGLOBIN 14.9 g/dL (12.0-16.0); IMM GRAN% 0.4 % (0.0-0.5); MCH 30.3 PG (27-31); MCHC 34.3 g/dL (33-37); MCV 88.4 FL (81-99); MONO% 5.7 % (1.7-9.3); MPV 10.5 FL (7.4-10.4); NEUT% 87.7 % (42.2-75.2); PLT 301 X1000 (130-400); RBC 4.92 XMIL (4.2-5.4); WBC 12.33 X1000 (4.8-10.8)
[2018-10-26 11:25] LABS: BASO# 0.02 X1000 (0.0-0.2); IMM GRAN# 0.05 X1000 (0.0-0.04); INR 0.93; LYMPH# 0.74 X1000 (1.2-3.4); NEUT# 10.82 X1000 (1.4-6.5); PROTIME 13.3 Seconds (11.0-16.0)
[2018-10-26 11:26] LABS: URINE SOURCE CATH
[2018-10-26 11:27] LABS: UR EPITHELIAL CELLS <10 /HPF (<10); URINE BACTERIA NEGATIVE /HPF; URINE RBC <10 /HPF (<10); URINE WBC <10 /HPF (<10)
[2018-10-26 11:28] LABS: BILIRUBIN URINE NEGATIVE (NEGATIVE); BLOOD URINE NEGATIVE (NEGATIVE); COLOR YELLOW; GLUCOSE URINE NEGATIVE (NEGATIVE); KETONE URINE NEGATIVE (NEGATIVE); LEUKOCYTES URINE NEGATIVE (NEGATIVE); NITRITE URINE NEGATIVE (NEGATIVE); PH URINE 6.5; PROTEIN URINE 50 mg/dL (NEGATIVE); SP GRAVITY URINE 1.023; TURBIDITY URINE CLEAR (CLEAR); UROBILINOGEN URINE NORMAL (NORMAL)
[2018-10-26 11:30] LABS: BASO# 0.01 X1000 (0.0-0.2); BASO% 0.1 % (0.0-0.8); HEMATOCRIT 41.9 % (37.0-47.0); HEMOGLOBIN 13.9 g/dL (12.0-16.0); IMM GRAN# 0.06 X1000 (0.0-0.04); IMM GRAN% 0.5 % (0.0-0.5); LYMPH# 1.68 X1000 (1.2-3.4); MCH 29.8 PG (27-31); MCHC 33.2 g/dL (33-37); MCV 89.7 FL (81-99); MONO# 0.82 X1000 (0.11-0.59); MONO% 6.8 % (1.7-9.3); MPV 10.1 FL (7.4-10.4); NEUT# 9.47 X1000 (1.4-6.5); NEUT% 78.6 % (42.2-75.2); PLT 227 X1000 (130-400); RBC 4.67 XMIL (4.2-5.4); RDW 14.1 % (11.5-14.5); WBC 12.04 X1000 (4.8-10.8)
[2018-10-26 11:34] LABS: BUN 16 mg/dL (8-22); CALCIUM 8.6 mg/dL (8.8-10.2); CREATININE 0.8 mg/dL (0.5-0.9); ESTIMATED GFR > 60; GLUCOSE 128 mg/dL (70-104); TCO2 20 mmol/L (25-35)
[2018-10-26 11:40] LABS: CHLORIDE 98 mmol/L (98-107); POTASSIUM 3.8 mmol/L (3.5-5.1); SODIUM 134 mmol/L (136-145)
[2018-10-26 11:55] LABS: AGAP 16; COSMO 271
[2018-10-26] MEDS: CLINIMIX E 4.25%-5% SOLUTION 1,000 ML IV SCH (15:03)
[2018-10-26] MEDS: SEROQUEL PO SCH (20:24)
[2018-10-27] MEDS: CLINIMIX E 4.25%-5% SOLUTION 1,000 ML IV SCH ×2 (03:26→08:56)
[2018-10-27] MEDS: DUONEB (A & A) INH SCH ×4 (03:28→23:25)
[2018-10-27] MEDS: SYNTHROID PO SCH ×2 (05:06→06:07)
[2018-10-27] MEDS: PRILOSEC PO SCH ×2 (05:06→06:07)
[2018-10-27] MEDS: LOVENOX SUBQ SCH ×2 (05:06→05:40)
[2018-10-27] MEDS: CARAFATE PO SCH ×5 (05:06→20:48)
[2018-10-27 05:38] LABS: BASO# 0.01 X1000 (0.0-0.2); BASO% 0.1 % (0.0-0.8); EOS# 0.05 X1000 (0.0-0.7); EOS% 0.5 % (0.0-10.0); HEMATOCRIT 40.3 % (37.0-47.0); HEMOGLOBIN 13.1 g/dL (12.0-16.0); IMM GRAN# 0.04 X1000 (0.0-0.04); IMM GRAN% 0.4 % (0.0-0.5); LYMPH# 1.31 X1000 (1.2-3.4); LYMPH% 12.8 % (20.5-51.1); MCH 29.5 PG (27-31); MCHC 32.5 g/dL (33-37); MCV 90.8 FL (81-99); MONO# 0.77 X1000 (0.11-0.59); MONO% 7.5 % (1.7-9.3); MPV 10.4 FL (7.4-10.4); NEUT# 8.09 X1000 (1.4-6.5); NEUT% 78.7 % (42.2-75.2); PLT 220 X1000 (130-400); RBC 4.44 XMIL (4.2-5.4); WBC 10.27 X1000 (4.8-10.8)
[2018-10-27 05:57] LABS: ALB/GLOB RATIO 1.2; ALBUMIN 3.5 g/dL (3.5-5.0); CALCIUM 9.1 mg/dL (8.8-10.2); CREATININE 0.9 mg/dL (0.5-0.9); POTASSIUM 3.9 mmol/L (3.5-5.1); TOTAL BILIRUBIN 0.32 mg/dL (0.20-1.00); TOTAL PROTEIN 6.4 g/dL (6.3-8.3)
--- NOTE | 2018-10-27 08:51 | PROGRESS NOTE ---
DATE: 10/27/2018 SUBJECTIVE: This patient is lying comfortably in bed. She is tolerating a little bit of her liquid diet, which I will advance to a full liquid diet today. I will increase also the rate of the IV fluids. She is getting Clinimix and I will add normal saline. Laboratory seems to be stable, as well as her vital signs. I will ask occupational therapy and physical therapy to evaluate this patient. No bowel movements during the night. No nausea, no vomiting. OBJECTIVE: Vital Signs: Temperature 98.7 degrees, pulse 98, respiratory rate 18, blood pressure 130/75, oxygen saturation 97% on 3 L of nasal cannula. HEENT: Head normocephalic. No trauma. PERRLA. Neck: Supple. No JVD. No masses. Central trachea. Chest: Clear to auscultation. No wheezing. No rales. Abdomen: Soft. Some tenderness to palpation at the level of the periumbilical area. Extremities: No edema, no clubbing, no cyanosis. Neurological Examination: This patient is sleepy but arousable. She is oriented x1, only to person. She moves all 4 extremities spontaneously. Laboratory: WBC 10.2, hemoglobin 13.1, hematocrit 40.3, and platelets 220,000. Sodium 134, potassium 3.9, chloride 97, bicarbonate 24, BUN 17, creatinine 0.9, glucose 141, calcium 9.1. AST 14, ALT 12, alkaline phosphatase 81. ASSESSMENT AND PLAN: 1. Nausea, vomiting, and diarrhea. She seems to be a little bit better compared with yesterday. She is not having more episodes of nausea. No vomiting or diarrhea during the night. She is tolerating a little bit of liquid diet. I will advance it to a full liquid diet today. I will continue with intravenous fluids but I will increase a little bit the amount. I will continue with Clinimix and I will add normal saline. 2. Altered mental status in a patient with advanced dementia. As per the daughter, this is not her baseline. For the past few days, she was more confused than normal. We will just monitor. I think she is a little bit better today. 3. Status post frequent falls, likely secondary to dehydration. I will order physical therapy and occupational therapy today. 4. Hypoxia. I am not quite sure why this patient is hypoxemic. Probably, she has bronchitis. She has been placed on breathing treatments. I will add azithromycin. 5. Possible bronchitis, as above. 6. History of hypertension, stable. 7. Dehydration. She seems to be a little bit better. Her urine is still concentrated. I have increased the rate of the intravenous fluids. cc: Kyle Ruby MD
[2018-10-27] MEDS: NS 1,000 ML IV SCH (08:56)
[2018-10-27] MEDS: PROZAC PO SCH (08:57)
[2018-10-27] MEDS: PYRIDIUM PO SCH ×3 (08:57→20:48)
[2018-10-27] MEDS: PRINIVIL PO SCH (08:57)
[2018-10-27] MEDS: ZITHROMAX 500 MG/NS 500 MG/250 ML IVPB IV SCH (10:30)
[2018-10-27] MEDS: SEROQUEL PO SCH (20:48)
[2018-10-28] MEDS: NS 1,000 ML IV SCH ×2 (02:18→18:14)
[2018-10-28] MEDS: DUONEB (A & A) INH SCH ×4 (03:40→22:55)
[2018-10-28] MEDS: CLINIMIX E 4.25%-5% SOLUTION 1,000 ML IV SCH ×2 (04:00→18:20)
[2018-10-28] MEDS: CARAFATE PO SCH ×4 (06:39→20:29)
[2018-10-28] MEDS: PRILOSEC PO SCH (06:39)
[2018-10-28] MEDS: LOVENOX SUBQ SCH (06:39)
[2018-10-28] MEDS: SYNTHROID PO SCH (06:40)
[2018-10-28 07:37] LABS: BASO# 0.01 X1000 (0.0-0.2); BASO% 0.2 % (0.0-0.8); EOS# 0.12 X1000 (0.0-0.7); HEMATOCRIT 35.2 % (37.0-47.0); HEMOGLOBIN 11.5 g/dL (12.0-16.0); IMM GRAN# 0.03 X1000 (0.0-0.04); IMM GRAN% 0.5 % (0.0-0.5); LYMPH# 1.89 X1000 (1.2-3.4); LYMPH% 31.6 % (20.5-51.1); MCH 29.7 PG (27-31); MCHC 32.7 g/dL (33-37); MONO# 0.56 X1000 (0.11-0.59); MONO% 9.4 % (1.7-9.3); MPV 10.2 FL (7.4-10.4); NEUT# 3.37 X1000 (1.4-6.5); NEUT% 56.3 % (42.2-75.2); PLT 226 X1000 (130-400); RBC 3.87 XMIL (4.2-5.4); RDW 13.6 % (11.5-14.5); WBC 5.98 X1000 (4.8-10.8)
[2018-10-28 07:57] LABS: AGAP 9; BUN 12 mg/dL (8-22); CALCIUM 9.4 mg/dL (8.8-10.2); CHLORIDE 106 mmol/L (98-107); COSMO 277; CREATININE 0.6 mg/dL (0.5-0.9); ESTIMATED GFR > 60; GLUCOSE 97 mg/dL (70-104); POTASSIUM 3.4 mmol/L (3.5-5.1); SODIUM 139 mmol/L (136-145); TCO2 24 mmol/L (25-35)
[2018-10-28] MEDS: ZITHROMAX 500 MG/NS 500 MG/250 ML IVPB IV SCH (09:48)
[2018-10-28] MEDS: PRINIVIL PO SCH (09:49)
[2018-10-28] MEDS: PROZAC PO SCH (09:49)
[2018-10-28] MEDS: PYRIDIUM PO SCH ×3 (09:49→20:29)
[2018-10-28] MEDS ORDERED: KLOR-CON PO ONE (09:57)
[2018-10-28] MEDS: ROCEPHIN 1 GM in NS 50 ML IV SCH (18:14)
--- NOTE | 2018-10-28 19:49 | PROGRESS NOTE ---
DATE: 10/28/2018 SUBJECTIVE: This patient is resting comfortably in bed. She is not having diarrhea. I will advance her diet. I will decrease the rate of the IV fluids. She has generalized weakness. Continue physical therapy. Hopefully, I will be able to discharge this patient in the next 24 to 48 hours. OBJECTIVE: Vital Signs: Temperature 98 degrees, pulse 81, respiratory rate 20, blood pressure 117/55, oxygen saturation 95% on 3 L of nasal cannula. HEENT: Head normocephalic. No trauma. PERRLA. Neck: Supple. No JVD. No masses. Central trachea. Chest: Clear to auscultation. No wheezing. No rales. Abdomen: Soft. Some tenderness to palpation at the level of the periumbilical area. Extremities: No edema, no clubbing, no cyanosis, no deformity. Neurological: This patient is awake. She is following commands on and off. She is oriented x1, but I believe it is due to her severe dementia. She moves all 4 extremities spontaneously. LABORATORY: WBC 5.9, hemoglobin 11.5, hematocrit 35.2, platelets 226,000. Sodium 139, potassium 3.4, chloride 106, bicarbonate 24, BUN 12, creatinine 0.6, glucose 97, calcium 9.4. ASSESSMENT AND PLAN: 1. Nausea, vomiting, and diarrhea. She seems to be better. She is tolerating p.o. She is not having more episodes of nausea. She is not having diarrhea. She is really weak. I will continue physical therapy. I will decrease the intravenous fluids today, and I will advance the diet and let us see how she does. 2. Altered mental status, in a patient with advanced dementia. Probably, this is her baseline, but as per the daughter, she is more confused than normal. We will just monitor. 3. Status post frequent falls, likely secondary to dehydration. I have ordered physical therapy and occupational therapy. 4. Hypoxia. I am not quite sure why this patient is hypoxemic. She is not coughing. Chest x- ray did not show any acute abnormality and she is not using oxygen at home. Abdomen and pelvis CT scan showed some pneumonia or bronchitis in the lung bases. She has been getting azithromycin since admission. I will add ceftriaxone. 5. Bilateral lower lung pneumonia. Continue with azithromycin. I will add ceftriaxone. 6. History of hypertension, stable. 7. Dehydration, resolved. She seems to be doing better now. cc: Kyle Ruby MD
[2018-10-28] MEDS: SEROQUEL PO SCH (20:29)
[2018-10-29] MEDS: CLINIMIX E 4.25%-5% SOLUTION 1,000 ML IV SCH ×2 (01:00→11:06)
[2018-10-29] MEDS: DUONEB (A & A) INH SCH ×4 (03:45→22:50)
[2018-10-29] MEDS: CARAFATE PO SCH ×4 (06:19→20:17)
[2018-10-29] MEDS: LOVENOX SUBQ SCH (06:19)
[2018-10-29] MEDS: PRILOSEC PO SCH (06:19)
[2018-10-29] MEDS: SYNTHROID PO SCH (06:19)
[2018-10-29 07:28] LABS: EOS% 2.3 % (0.0-10.0); HEMATOCRIT 36.7 % (37.0-47.0); HEMOGLOBIN 11.7 g/dL (12.0-16.0); LYMPH% 29.5 % (20.5-51.1); MCHC 31.9 g/dL (33-37); MCV 91.1 FL (81-99); MONO% 10.9 % (1.7-9.3); MPV 10.1 FL (7.4-10.4); NEUT% 56.7 % (42.2-75.2); PLT 247 X1000 (130-400); RBC 4.03 XMIL (4.2-5.4); RDW 13.5 % (11.5-14.5); WBC 7.05 X1000 (4.8-10.8)
[2018-10-29 07:29] LABS: BASO# 0.02 X1000 (0.0-0.2); BASO% 0.3 % (0.0-0.8); EOS# 0.16 X1000 (0.0-0.7); IMM GRAN# 0.02 X1000 (0.0-0.04); IMM GRAN% 0.3 % (0.0-0.5); LYMPH# 2.08 X1000 (1.2-3.4); MONO# 0.77 X1000 (0.11-0.59)
[2018-10-29 07:54] LABS: AGAP 7; BUN 11 mg/dL (8-22); CALCIUM 8.3 mg/dL (8.8-10.2); CHLORIDE 103 mmol/L (98-107); COSMO 269; CREATININE 0.6 mg/dL (0.5-0.9); ESTIMATED GFR > 60; GLUCOSE 91 mg/dL (70-104); POTASSIUM 3.8 mmol/L (3.5-5.1); SODIUM 135 mmol/L (136-145); TCO2 25 mmol/L (25-35)
[2018-10-29] MEDS: PROZAC PO SCH (10:12)
[2018-10-29] MEDS: NS 1,000 ML IV SCH (10:12)
[2018-10-29] MEDS: PRINIVIL PO SCH (10:12)
[2018-10-29] MEDS: PYRIDIUM PO SCH ×3 (10:12→20:17)
[2018-10-29] MEDS: ZITHROMAX 500 MG/NS 500 MG/250 ML IVPB IV SCH (10:12)
--- NOTE | 2018-10-29 10:20 | Diag Imaging Result Doc PS360 ---
EXAM: CHEST-PORTABLE 10/29/2018 HISTORY: Hypoxemia, pneumonia TECHNIQUE: AP portable upright at 0952 COMMENT: The inspiration is suboptimal. Compared to the previous study of 10/26/2018 there has been no appreciable change. IMPRESSION: Stable chest. Electronically signed by Demarco Correa 10/29/2018 10:18 AM
--- NOTE | 2018-10-29 14:14 | PROGRESS NOTE ---
DATE: 10/29/2018 SUBJECTIVE: Patient is resting comfortably in bed. She is not having diarrhea. Her diet has been advanced. I will stop the IV fluids today. Probably she will need to be discharged with home health and physical therapy at home. She looks hydrated, probably this is her baseline. I will request home O2 evaluation in the morning to see if she needs oxygen at home. OBJECTIVE: Vital Signs: Temperature 98.1 degrees, pulse 80, respiratory rate 24, blood pressure 118/59, oxygen saturation 96 on 3 L of nasal cannula. HEENT: Head normocephalic, no trauma. PERRLA. Neck: Supple. No JVD. No masses. Central trachea. Chest: Clear to auscultation. No wheezing. No rales. Some crepitus at the bases. Abdomen: Soft. Mild tenderness to palpation at the level of the periumbilical area. Extremities: No edema, no clubbing, no cyanosis, no deformity. Neurological examination: She is awake. She is following commands on and off. She is answering some of my questions. She is oriented x1, but she knows that she is in the hospital. She moves all 4 extremities spontaneously. LABORATORY: WBC 7, hemoglobin 11.7, hematocrit 36.7, platelets 247. Sodium 135, potassium 3.8, chloride 103, bicarbonate 25, BUN 11, creatinine 0.6, glucose 91, calcium 8.3. ASSESSMENT AND PLAN: 1. Nausea, vomiting and diarrhea, resolved. She already received intravenous fluids. I will continue only with her diet. 2. Altered mental status in a patient with advanced dementia. I talked to her daughter today and it looks like this is her baseline. She is getting better. We will continue to monitor. 3. Status post frequent falls likely secondary to dehydration and weakness. Likely we will send this patient home with home health and physical therapy, but also there is a possibility of sending this patient to a rehab center. I discussed this with the daughter, and she is able to take her home. 4. Hypoxia, probably secondary to bilateral lower lung pneumonia. Continue with azithromycin and ceftriaxone. Continue with oxygen supplementation. I will request an evaluation in the morning to see if she needs oxygen at home. 5. Bilateral lower lung pneumonia. Continue with antibiotics, oxygen supplementation and breathing treatment. 6. History of hypertension, stable. 7. Dehydration, resolved. cc: Kyle Ruby MD
[2018-10-29] MEDS: ROCEPHIN 1 GM in NS 50 ML IV SCH (17:33)
[2018-10-29] MEDS: SEROQUEL PO SCH (20:17)
[2018-10-30] MEDS: DUONEB (A & A) INH SCH ×4 (03:30→22:30)
[2018-10-30] MEDS: SYNTHROID PO SCH (06:15)
[2018-10-30] MEDS: CARAFATE PO SCH ×4 (06:15→20:40)
[2018-10-30] MEDS: LOVENOX SUBQ SCH (06:16)
[2018-10-30] MEDS: PRILOSEC PO SCH (06:16)
--- NOTE | 2018-10-30 07:50 | Diag Imaging Result Doc PS360 ---
CHEST-PORTABLE - 10/30/2018 INDICATION: dyspnea COMPARISON: 10/29/2018 FINDINGS: There is some scattered linear atelectasis in the lung bases. Lung volumes are much improved. Stable right hemidiaphragm elevation. Heart size and pulmonary vascularity remain normal. IMPRESSION: Scattered linear atelectasis in the lung bases. Electronically signed by Henri Melendez 10/30/2018 7:48 AM
[2018-10-30 08:10] LABS: AGAP 6; BUN 9 mg/dL (8-22); CHLORIDE 103 mmol/L (98-107); COSMO 274; CREATININE 0.6 mg/dL (0.5-0.9); ESTIMATED GFR > 60; GLUCOSE 93 mg/dL (70-104); POTASSIUM 3.7 mmol/L (3.5-5.1); SODIUM 138 mmol/L (136-145); TCO2 29 mmol/L (25-35)
[2018-10-30] MEDS: ZITHROMAX 500 MG/NS 500 MG/250 ML IVPB IV SCH (08:59)
[2018-10-30] MEDS: PRINIVIL PO SCH (09:00)
[2018-10-30] MEDS: PYRIDIUM PO SCH ×3 (09:00→20:40)
[2018-10-30] MEDS: PROZAC PO SCH (09:03)
--- NOTE | 2018-10-30 14:03 | PROGRESS NOTE ---
DATE: 10/30/2018 SUBJECTIVE: Patient is resting comfortably in bed. No more diarrhea. No shortness of breath. I requested a home O2 evaluation, and at rest and with physical activity, the oxygen was stable, more than 90%. The plan is to send this patient to a rehabilitation center. We will continue with the same management. OBJECTIVE: Vital Signs: Temperature 97.8 degrees, pulse 83, respiratory rate 14, blood pressure 123/66, oxygen saturation 98 on 2 L of nasal cannula. HEENT: Head normocephalic, no trauma. PERRLA. Neck: Supple. No JVD. No masses. Central trachea. Chest: Clear to auscultation. No wheezing. Some crepitus at the bases. Abdomen: Soft. Today is nontender, nondistended. No hepatosplenomegaly. Extremities: No edema, no clubbing, no cyanosis. Neurological: She is awake. She is following commands on and off. She is answering to some of my questions. She is oriented x2, but she knows she is in the hospital. She moves all 4 extremities. LABORATORY: Sodium 138, potassium 3.7, chloride 103, bicarbonate 29, BUN 9, creatinine 0.6, glucose 93, calcium 9. ASSESSMENT AND PLAN: 1. Nausea/vomiting and diarrhea, resolved. 2. Altered mental status in a patient with advanced dementia. It looks like upon admission she was more confused than normal, but now, it looks like this is her baseline. 3. Status post frequent falls, likely secondary to dehydration and weakness. We will continue physical therapy. The plan is to send this patient to a rehabilitation center. 4. Hypoxia, probably secondary to bilateral lower lung pneumonia. She seems to be doing better. Continue with antibiotics. 5. Bilateral lower lung pneumonia. Continue with antibiotics, oxygen supplementation, and breathing treatment. 6. History of hypertension, stable. 7. Dehydration, resolved. cc: Kyle Ruby MD
[2018-10-30] MEDS: ROCEPHIN 1 GM in NS 50 ML IV SCH (19:02)
[2018-10-30] MEDS: SEROQUEL PO SCH (20:40)
[2018-10-31] MEDS: DUONEB (A & A) INH SCH ×2 (03:45→09:24)
[2018-10-31] MEDS: LOVENOX SUBQ SCH (06:33)
[2018-10-31] MEDS: SYNTHROID PO SCH (06:33)
[2018-10-31] MEDS: PRILOSEC PO SCH (06:34)
[2018-10-31] MEDS: CARAFATE PO SCH ×2 (06:34→10:40)
[2018-10-31] MEDS: PROZAC PO SCH (08:02)
[2018-10-31] MEDS: ZITHROMAX 500 MG/NS 500 MG/250 ML IVPB IV SCH (08:02)
[2018-10-31] MEDS: PYRIDIUM PO SCH (08:02)
[2018-10-31] MEDS: PRINIVIL PO SCH (08:03)
--- NOTE | 2018-10-31 10:48 | DISCHARGE SUMMARY ---
ADMISSION DATE: 10/26/2018 DISCHARGE DATE: DISCHARGE DIAGNOSES: 1. Nausea, vomiting, and diarrhea, resolved, likely viral. 2. Hypoxemia with bilateral lower lung pneumonia. 3. Altered mental status in a patient with advanced dementia. 4. Status post frequent falls. 5. Dehydration. 6. History of hypertension. PROCEDURES PERFORMED: 1. Chest x-ray dated 10/26/2018. Impression: No acute disease. 2. Head and cervical spine CT dated 10/26/2018. Impression: No acute injury. 3. Abdomen and pelvis CT scan dated 10/26/2018. Impression: Minimal bronchitis or bronchial pneumonia in the lung bases, fatty liver, benign liver cyst, fluid-filled colon suggesting diarrheal illness, but otherwise no acute disease in the abdomen. 4. Chest x-ray dated 10/29/2018. Impression: Stable chest. 5. Chest x-ray dated 10/30/2018. Impression: Scattered linear atelectasis in the lung bases. HOSPITAL COURSE: A 78-year-old, female with a past medical history of dementia, hypertension, hypothyroidism, GERD, was brought to the emergency department with a several day history of having falls and being more confused than normal. As per the family member, she was not acting right and she has been having nausea, vomiting, and diarrhea. At the moment of the examination in the emergency department, she was mildly confused so the history was obtained from the family. She also was found to be a little bit hypoxic around 89% and tachycardic. Due to her symptoms, she was hospitalized. She was placed in the [facility] unit. She had multiple studies including CT of the head and cervical spine, CT of the abdomen and pelvis that showed a fluid collection, likely due to diarrheal illness, and also some infiltrates at the lung bases compatible with bibasilar pneumonia. She was placed on antibiotics and IV fluids. The nausea, vomiting, and diarrhea stop completely. Actually, this patient is tolerating p.o. really good. No fever. No chills. She has been coughing on and off but no sputum production and the cough is much better. Physical therapy has been working with this patient. I evaluated twice this patient resting and also walking without oxygen and the oxygen saturation did not drop below 90. but today dropped below 90. She seems to be stable. It looks like this is her baseline. She has a baseline dementia. She will be discharged home today with home health. PHYSICAL EXAMINATION: Vital Signs: Temperature 98.4 degrees, pulse 81, respiratory rate 17, blood pressure 121/53, oxygen saturation 96% on 2 L of nasal cannula. HEENT: Head normocephalic. No trauma. PERRLA. Neck: Supple. No JVD. No masses. Central trachea. Chest: Clear to auscultation. No wheezing. Some crepitus at the bases. Abdomen: Soft. Today is nontender and nondistended. No hepatosplenomegaly. Extremities: No edema, no clubbing, no cyanosis. Neurological Examination: She is awake. She is following commands. She is answering some of my questions but she is oriented x1, just to person, but she knows she is in the hospital. She does not remember which one. She moves all 4 extremities. LABORATORY: Laboratory from yesterday, sodium 138, potassium 3.7, chloride 103, bicarbonate 29, BUN 9, creatinine 0.6, glucose 93, calcium 9. DISCHARGE MEDICATIONS: Ventolin HFA 2 puff inhaler q.6 hours as needed for shortness of breath, azithromycin 250 mg p.o. daily, cefdinir 300 mg p.o. b.i.d., fluoxetine 40 mg p.o. q.a.m., levothyroxine 125 mg p.o. q.a.m., lisinopril 10 mg p.o. daily, omeprazole 40 mg p.o. daily, Pyridium 200 mg p.o. t.i.d., Seroquel 100 mg p.o. at bedtime, and Carafate 1 g p.o. a.c. and at bedtime. FOLLOWUP: With her primary care doctor in 2 to 3 weeks. Time discharging this patient, 35 minutes. cc: MD CORY Garcia
[2018-10-31 11:17] VITALS: BP 112/63
== END 2018-10-31 15:25 | disposition home health service (06) | DRG 884 ==
LOC: ED 01:05 → EDIPHOLD 08:00 → SUATTDRO 08:00 → 3S 14:27 → 3N 10-27 10:42
PROVIDERS: ATTEND Internal Medicine
CPT/HCPCS: 70450; 71010; 71045; 72125; 74177; 80048; 80053; 81001; 82150; 82550; 82553; 82607; 83605; 83690; 84443; 84484; 85025; 85610; 85730; 87040; 87088; 93005; 94640; 94760; 94761; 96372; 97116; 97162; 97166; 97530; 97535; 99285; A9270; J0456; J0696; J1650; J7030; Q9967

== ENCOUNTER 2019-01-03 12:38 | Inpatient (IN) ==
--- NOTE | 2019-01-03 14:20 | PROVIDER DOCUMENTATION ---
HPI-General Adult - General Chief Complaint: Altered Mental Status Stated Complaint: POSSIBLE UTI Time Seen by Provider: 01/03/19 13:59 Source: family Allergies/Adverse Reactions: Patient Allergies Allergy/AdvReac Type Severity Reaction Status Date / Time No Known Allergies Allergy Verified 10/26/18 01:47 Home Medications: Home Medication List Medication Instructions Recorded Confirmed Last Taken Type Fluoxetine HCl 40 mg PO DAILY 01/03/19 01/03/19 01/02/19 History L.acidoph,Paracasei, B.lactis 1 ea PO DAILY 01/03/19 01/03/19 01/03/19 History [Probiotic] LISINOpril [Prinivil] 10 mg PO DAILY 01/03/19 01/03/19 01/03/19 History Levothyroxine Sodium 150 mcg PO DAILY 01/03/19 01/03/19 01/03/19 History Nitrofurantoin Macrocrystal 50 mg PO DAILY 01/03/19 01/03/19 01/03/19 History [Macrodantin] Omeprazole 40 mg PO DAILY 01/03/19 01/03/19 01/02/19 History Sucralfate [Carafate] 1 gm PO 4XDAY 01/03/19 01/03/19 01/03/19 History - History of Present Illness -Gen Adult Nature of Presenting Problems: 78 YO F pmh for dementia brought in by daughter for AMS x 1 day and recurrent falls (pt has fallen every day for the past 4 days). Daughter states that when pt has AMS, it is usually associated with a UTI. She has associated insomnia. She denies fever, change in appetitie, and pt denies abdominal pain, head pain, or neck pain. She does endorse that she has been falling.Pt was seen here for similar complaints October 2018. Location of Pain/Injury: reports: none Quality of Pain: reports: none Severity: reports: mild Onset/Duration: reports: 4 days ago Context/Activities at Onset: reports: none Modifying Factors: improves with: nothing Associated Symptoms: reports: cough, trouble walking. denies: back/neck pain, dizziness, loss of appetite, nausea, shortness of breath, syncope Review of Systems - Adult - REVIEW OF SYSTEMS - ADULT Constitutional: denies: chills, fever Eyes: reports: no symptoms reported Ears, Nose, Mouth & Throat: reports: no symptoms reported Cardiovascular: denies: chest pain, edema, syncope Respiratory: reports: cough Gastrointestinal: denies: abdominal pain, nausea, vomiting Genitourinary: denies: hematuria Integumentary: reports: no symptoms reported Neurological: reports: loss of balance. denies: headache/migraines, syncope Past History - Adult - PAST MEDICAL HISTORY-ADULT Review of Records: reports: Old Records Reviewed, Nursing Assessment Review, Social history reviewed & non-contributory. Major Childhood Illnesses: reports: denies history Cardiovascular: reports: HTN Respiratory: reports: denies history Gastrointestinal: reports: GERD Obstetrical/Gynecological: reports: denies history Genitourinary: reports: denies history Musculoskeletal: reports: denies history Neurological: reports: dementia Psychiatric: reports: depression Endocrine/Immune: reports: thyroid disorder (hypo) Other Conditions: reports: denies history - PRIOR SURGERIES/PROCEDURES Surgical/Procedure History: reports: reviewed, not pertinent, cholecystectomy, o ther (neck spur) - IMMUNIZATION STATUS Childhood Immunizations: See Nurse Assessment Flu Vaccine: See Nurse Assessment - FAMILY HISTORY Family History: reviewed, not pertinent - SOCIAL HISTORY Smoking: denies Substance Use: denies Physical Exam-General - CONSTITUTIONAL General Appearance: appears well, alert, no apparent distress - EYES Eyes: PERRL/EOMI, pink conjunctivae - HEAD, EARS, NOSE, MOUTH & THROAT HENMT: normocephalic/atraumatic, dental decay - RESPIRATORY Respiratory: lungs clear, normal breath sounds, no pleuratic chest pain, other (dry cough) - CARDIOVASCULAR Cardiovascular: regular rate, rhythm - GASTROINTESTINAL (ABDOMEN) Abdominal Exam: non tender, other (decreased bowel sounds). negative: distended - MUSCULOSKELETAL Back Exam: normal inspection Extremity: normal range of motion, normal inspection, no pedal edema, no calf tenderness, normal capillary refill - SKIN Integumentary: normal color, normal turgor, warm/dry - NEUROLOGIC Neurologic: inspector tubes II-XII nml as tested, no motor/sensory deficits. negative: facial droop, focal weakness, motor weakness, sensory deficit - PSYCHIATRIC Psych/Mental Status: other (oriented to person and place) Progress - PLAN OF CARE/RESULTS Progress/Plan/Lab Results: Vital Signs - 8 hr 01/03/19 13:40 Pulse Rate 92 H Respiratory Rate 19 Blood Pressure 116/79 O2 Sat by Pulse Oximetry 94 L Orders Category Date Time Status Saline Loc NOW Care 01/03/19 14:13 Ordered CHEST-2 VIEWS [RAD] Stat Exams 01/03/19 14:[address] HEAD W/O CONTRAST [CT] Stat Exams 01/03/19 14:16 Ordered CBC WITH ELECTRONIC DIFF [HEME] Stat Lab 01/03/19 14:13 Uncollected CMP [COMPREHENSIVE METABOLIC PANEL] [CHEM] Stat Lab 01/03/19 14:16 Uncollected PRO B-NATRIURETIC PEPTIDE Stat Lab 01/03/19 14:14 Ordered TROPONIN T Stat Lab 01/03/19 14:14 Ordered TSH Stat Lab 01/03/19 14:13 Uncollected URINALYSIS W/POSS RFLX CULT [URINALYSIS] Stat Lab 01/03/19 14:14 Uncollected EKG [EKG] Stat Ther 01/03/19 14:13 Ordered labs reviewed, grossly normal. positive orthostatics, fluids given. positive UA, abx started. Result Diagrams: 01/03/19 15:40 01/03/19 15:40 - EKG 1 Time of EKG reading by physician:: 14:33 EKG Read and Signed by:: Juan Luis Leigh Rate: 89 Rhythm: NSR [place]: normal QRS: normal NM Interval: normal ST Wave: non-specific ST changes Prior EKG Comparison: unchanged from prior (07/29/18) - XRAY 1 XRAY Study: Chest Impression: See EMR Report (EXAM: CHEST-2 VIEWS 01/03/2019 HISTORY: cough TECHNIQUE: PA and lateral chest COMMENT: The inspiration is suboptimal. There are platelike opacities in both lungs which have not changed significantly since 10/30/2018 and may be fibrotic. IMPRESSION: Stable chest. Electronically signed by Demarco Correa 01/03/2019 2:37 PM) - CT/MRI 1 CT Study: Head Impression: Normal - CONSULTS/PCP/HOSPITALIST Notification #1 *Consult/PCP/Hospitalist*: Dr. Sinclair accepts Time Discussed: 17:30 Consult Disposition: Will see in ED Departure - Departure Date of Disposition Decision: 01/03/19 Time of Disposition Decision: 17:29 DIAGNOSIS: Clinical decompensation, Recurrent falls, Poor dentition, Orthostatic hypotension, Dehydration Disposition: ADMITTED INPATIENT 09 Certified Medical Emergency: Emergent Condition: Stable Referrals and Follow-Ups: Andry Sarmiento MD [Primary Care Provider] - - Critical Care Note This patient required my direct & personal management of CC.: No Attestation - Physician/ LORNA Attestation The physician spent face to face time with patient:: Yes Advanced Practice Provider documentation review:: Supervising physician onsite and consulted in the evaluation and care of this patient. The physician did have a face to face encounter with the patient.
--- NOTE | 2019-01-03 14:40 | Diag Imaging Result Doc PS360 ---
EXAM: CHEST-2 VIEWS 01/03/2019 HISTORY: cough TECHNIQUE: PA and lateral chest COMMENT: The inspiration is suboptimal. There are platelike opacities in both lungs which have not changed significantly since 10/30/2018 and may be fibrotic. IMPRESSION: Stable chest. Electronically signed by Demarco Correa 01/03/2019 2:37 PM
--- NOTE | 2019-01-03 14:41 | Diag Imaging Result Doc PS360 ---
CT HEAD W/O CONTRAST - 01/03/2019 INDICATION: AMS COMPARISON: 10/26/2018 FINDINGS: Stable mild cerebral atrophy. There is stable mild periventricular white matter chronic microvascular disease. No intracranial mass or hemorrhage. The skull is intact. The sinuses, mastoids, and middle ears are clear. IMPRESSION: No acute process. No change from prior. This exam was performed using automated exposure control, adjustment of mA or kV according to patient size, and/or use of iterative reconstruction technique Electronically signed by Henri Melendez 01/03/2019 2:39 PM
--- NOTE | 2019-01-03 14:47 | EKG Report ---
Test Performed on : 01/03/2019 2:02:19 PM Test Reason : AMS Blood Pressure : / mmHG Vent. Rate : 089 BPM Atrial Rate : 089 BPM P-R Int : 140 ms QRS Dur : 072 ms QT Int : 390 ms P-R-T Axes : 060 040 082 degrees QTc Int : 474 ms Normal sinus rhythm. Nonspecific ST and T wave abnormality Abnormal ECG When compared with ECG of 26-OCT-2018 03:05, (Unconfirmed) No significant change was found Unconfirmed Result
[2019-01-03 16:00] LABS: BASO# 0.03 X1000 (0.0-0.2); BASO% 0.3 % (0.0-0.8); EOS# 0.26 X1000 (0.0-0.7); EOS% 2.5 % (0.0-10.0); HEMATOCRIT 43.1 % (37.0-47.0); HEMOGLOBIN 13.7 g/dL (12.0-16.0); IMM GRAN# 0.05 X1000 (0.0-0.04); IMM GRAN% 0.5 % (0.0-0.5); LYMPH# 2.75 X1000 (1.2-3.4); LYMPH% 26.6 % (20.5-51.1); MCHC 31.8 g/dL (33-37); MCV 91.1 FL (81-99); MONO# 1.19 X1000 (0.11-0.59); MONO% 11.5 % (1.7-9.3); MPV 10.4 FL (7.4-10.4); NEUT# 6.06 X1000 (1.4-6.5); NEUT% 58.6 % (42.2-75.2); PLT 347 X1000 (130-400); RBC 4.73 XMIL (4.2-5.4); RDW 14.1 % (11.5-14.5); WBC 10.34 X1000 (4.8-10.8)
[2019-01-03 16:32] LABS: AGAP 13; ALB/GLOB RATIO 1.3; ALBUMIN 4.1 g/dL (3.5-5.0); ALKALINE PHOSPHATASE 109 U/L (32-104); BUN 15 mg/dL (8-22); CHLORIDE 101 mmol/L (98-107); COSMO 274; CREATININE 0.8 mg/dL (0.5-0.9); ESTIMATED GFR > 60; GLUCOSE 112 mg/dL (70-104); GOT 20 U/L (10-30); GPT 18 U/L (10-36); POTASSIUM 4.5 mmol/L (3.5-5.1); SODIUM 136 mmol/L (136-145); TCO2 22 mmol/L (25-35); TOTAL BILIRUBIN 0.43 mg/dL (0.20-1.00); TOTAL PROTEIN 7.3 g/dL (6.3-8.3)
[2019-01-03] MEDS ORDERED: NS 1,000 ML IV ONE (16:41)
[2019-01-03 16:48] LABS: URINE SOURCE CATH
[2019-01-03 16:56] LABS: BILIRUBIN URINE NEGATIVE (NEGATIVE); BLOOD URINE NEGATIVE (NEGATIVE); COLOR YELLOW; GLUCOSE URINE NEGATIVE (NEGATIVE); KETONE URINE TRACE mg/dL (NEGATIVE); LEUKOCYTES URINE MODERATE (NEGATIVE); NITRITE URINE POSITIVE (NEGATIVE); PH URINE 7.5; PROTEIN URINE 200 mg/dL (NEGATIVE); SP GRAVITY URINE 1.027; TURBIDITY URINE HAZY (CLEAR); UROBILINOGEN URINE NORMAL (NORMAL)
[2019-01-03 16:58] LABS: UR EPITHELIAL CELLS <10 /HPF (<10); URINE BACTERIA 4+ /HPF; URINE WBC TNTC /HPF (<10)
[2019-01-03] MEDS ORDERED: KEFLEX PO ONE (17:16)
[2019-01-03] MEDS ORDERED: ZOFRAN IV PRN (18:55)
[2019-01-03] MEDS ORDERED: TYLENOL PO PRN (18:55)
--- NOTE | 2019-01-03 19:08 | HISTORY AND PHYSICAL ---
CHIEF COMPLAINT: Altered mentation. HISTORY OF PRESENT ILLNESS: This is a 78-year-old female with significant dementia. Her daughter, I think, is her main caregiver, and she works in assisted living herself. She was here in October with a UTI that resolved. She had another UTI as an outpatient since then, somewhere in October, and then came back with symptoms. Her daughter says Wednesday, she was starting to act confused. Wednesday, she did not sleep all night, then she fell Wednesday, Wednesday, Wednesday. She was due to see Dr. Sarmiento today, but then she was admitted directly for treatment. In any case, patient was evaluated, found to have a UTI and symptomatic. She is complaining of abdominal pain and things of that nature. So, patient is overall stable. We will continue to follow. In any case, patient was admitted for treatment for a complicated UTI, encephalopathy. PAST MEDICAL HISTORY: 1. Dementia. 2. Hypertension. 3. Hypothyroidism. 4. GERD. 5. Depression. PAST SURGICAL HISTORY: 1. Cholecystectomy. 2. Cataract surgery. ALLERGIES: No known drug allergies. MEDICATIONS: She is supposed to be on Carafate 1 g 4 times daily, fluoxetine 40, Synthroid 150, Macrobid, Prilosec 40, lisinopril 10, Lactinex. REVIEW OF SYSTEMS: Otherwise negative x a 10-point review of systems. SOCIAL HISTORY: No tobacco or ethanol. She is an assisted living patient. PHYSICAL EXAMINATION: VITAL SIGNS: Blood pressure 156/101, heart rate 86, respiratory rate 18, temperature was normal. GENERAL: Generally speaking, she is doing well. No major complaints. HEAD: Normocephalic, atraumatic. EYES: Pupils equal, round, reactive to light. Extraocular movements were intact. EAR/NOSE/THROAT: She had moist mucous membranes. NECK: Supple. CARDIOVASCULAR: Regular rate and rhythm. PULMONARY: Bilateral breath sounds. Clear to auscultation. GASTROINTESTINAL: Soft, nontender, nondistended. Bowel sounds are positive. NEUROLOGIC: Nonfocal. MUSCULOSKELETAL: All 4 extremities 4 to 5. LABORATORY DATA: White count 10, hemoglobin and hematocrit 13 and 43, platelets 347,000. Basic was normal. UA showed positive nitrite, [id number]-[id number]-count white blood cells. ASSESSMENT/PLAN: This is a 78-year-old female with history of dementia, presenting with worsening encephalopathy in the setting of an acute cystitis. 1. Acute cystitis. We will continue Rocephin. She has had nephrolithiasis in the past, so we will do a renal colic just to make sure there are no complications associated with her UTI, cystitis. We will continue to monitor closely. 2. Encephalopathy. Likely related to metabolic component from infection in the setting of dementia. We will continue to monitor. 3. Orthostatic hypotension. She is obviously dehydrated. We will continue gentle hydration and follow closely. May also explain her falls. DISPOSITION/CODE STATUS: Pending her clinical status. Per her family, she is a DNR 1. This was confirmed with the daughter who has the power of civil attorney. cc: Aly Ayala MD
--- NOTE | 2019-01-03 22:03 | Diag Imaging Result Doc PS360 ---
CT RENAL STONE SEARCH - 01/03/2019 INDICATION: dianna COMPARISON: 10/26/2018 FINDINGS: There is some atelectasis in the lung bases but no infiltrates. There are several cysts in the liver. Stable cholecystectomy clips. No radiodense renal stones. No hydronephrosis or hydroureter. No bowel obstruction or inflammation. Urinary bladder, uterus, and rectum are normal. There are moderate degenerative changes of the spine. No acute or suspicious bony lesion. IMPRESSION: Negative exam. This exam was performed using automated exposure control, adjustment of mA or kV according to patient size, and/or use of iterative reconstruction technique Electronically signed by Henri Melendez 01/03/2019 10:01 PM
[2019-01-03] MEDS: NS 1,000 ML IV SCH (22:45)
[2019-01-03] MEDS: CARAFATE PO SCH (22:45)
[2019-01-03] MEDS: ROCEPHIN 1 GM in NS 50 ML IV SCH (22:45)
[2019-01-04 07:21] LABS: BASO# 0.03 X1000 (0.0-0.2); BASO% 0.3 % (0.0-0.8); EOS# 0.27 X1000 (0.0-0.7); EOS% 2.9 % (0.0-10.0); HEMATOCRIT 38.7 % (37.0-47.0); HEMOGLOBIN 12.6 g/dL (12.0-16.0); IMM GRAN# 0.05 X1000 (0.0-0.04); IMM GRAN% 0.5 % (0.0-0.5); LYMPH# 2.37 X1000 (1.2-3.4); LYMPH% 25.8 % (20.5-51.1); MCH 29.8 PG (27-31); MCHC 32.6 g/dL (33-37); MCV 91.5 FL (81-99); MONO# 0.91 X1000 (0.11-0.59); MONO% 9.9 % (1.7-9.3); MPV 10.5 FL (7.4-10.4); NEUT# 5.54 X1000 (1.4-6.5); NEUT% 60.6 % (42.2-75.2); PLT 295 X1000 (130-400); RBC 4.23 XMIL (4.2-5.4); RDW 13.7 % (11.5-14.5); WBC 9.17 X1000 (4.8-10.8)
[2019-01-04 07:41] LABS: AGAP 10; ALB/GLOB RATIO 1.2; ALBUMIN 3.5 g/dL (3.5-5.0); ALKALINE PHOSPHATASE 87 U/L (32-104); BUN 14 mg/dL (8-22); CALCIUM 8.2 mg/dL (8.8-10.2); CHLORIDE 105 mmol/L (98-107); COSMO 276; CREATININE 0.8 mg/dL (0.5-0.9); ESTIMATED GFR > 60; GLUCOSE 97 mg/dL (70-104); GOT 23 U/L (10-30); GPT 19 U/L (10-36); POTASSIUM 4.2 mmol/L (3.5-5.1); SODIUM 138 mmol/L (136-145); TCO2 23 mmol/L (25-35); TOTAL BILIRUBIN 0.45 mg/dL (0.20-1.00); TOTAL PROTEIN 6.4 g/dL (6.3-8.3)
[2019-01-04] MEDS: CARAFATE PO SCH ×4 (09:30→20:03)
[2019-01-04] MEDS: CULTURELLE PO SCH (09:30)
[2019-01-04] MEDS: PRILOSEC PO SCH (09:30)
[2019-01-04] MEDS: PROZAC PO SCH (09:30)
[2019-01-04] MEDS: NS 1,000 ML IV SCH ×2 (10:29→21:33)
[2019-01-04] MEDS: SYNTHROID PO SCH (10:36)
--- NOTE | 2019-01-04 14:29 | PROGRESS NOTE ---
DATE: 01/04/2019 SUBJECTIVE: This patient is resting comfortably in bed. She is not agitated. She is alert. She is oriented x2; she is not oriented to time. She is answering my questions. She is following commands. LABORATORY: WBC 9.1, hemoglobin 12.6, hematocrit 38.7, platelets 295,000. Sodium 138, potassium 4.2, chloride 105, bicarbonate 23, BUN 14, creatinine 0.8, glucose 97, calcium 8.2, AST 23, ALT 19, alkaline phosphatase 87, albumin 3.5. ASSESSMENT AND PLAN: 1. Acute cystitis. Continue with antibiotics. We do have a positive culture that showed gram- negative rods. She has been placed on Rocephin. Continue with same treatment. 2. Dehydration, resolved. 3. Orthostatic hypotension due to dehydration. Continue with the same management. 4. Encephalopathy in a patient with history of dementia. Aware. She seems to be much better. We will continue to monitor. 5. Hypertension, stable. 6. Hypothyroidism. Continue with levothyroxine. 7. Gastroesophageal reflux disease. This patient has been on proton pump inhibitors. cc: Kyle Ruby MD
[2019-01-04] MEDS: ROCEPHIN 1 GM in NS 50 ML IV SCH (18:31)
[2019-01-05] MEDS: NS 1,000 ML IV SCH ×2 (08:06→17:57)
[2019-01-05] MEDS: PRILOSEC PO SCH (08:07)
[2019-01-05] MEDS: CULTURELLE PO SCH (08:08)
[2019-01-05] MEDS: SYNTHROID PO SCH (08:08)
[2019-01-05] MEDS: PROZAC PO SCH (08:08)
[2019-01-05] MEDS: CARAFATE PO SCH ×4 (08:08→19:59)
[2019-01-05] MEDS: ROCEPHIN 1 GM in NS 50 ML IV SCH (17:57)
--- NOTE | 2019-01-05 18:28 | PROGRESS NOTE ---
DATE: 01/05/2019 SUBJECTIVE: The patient is resting comfortably in bed. She is not agitated. She is alert. She is oriented x2. She has been having multiple loose bowel movements. I will get C. difficile toxin and antigen, and also WBC in the stool. She is complaining of generalized weakness. Continues working with physical therapy. Hopefully tomorrow, we will discharge this patient, once I have the sensitivity back. PHYSICAL EXAMINATION: vital signs: Temperature 97.9 degrees, pulse 79, respiratory rate 15, blood pressure 137/66, oxygen saturation 100% on room air. HEENT: Head normocephalic, no trauma. PERRLA. Neck: Supple. No JVD. No masses. Central trachea. Chest: Clear to auscultation. No wheezing. No rales. Abdomen: Soft. Some tenderness to palpation at the level of suprapubic area. Extremities: No edema. No clubbing. No cyanosis. Neurological: The patient is alert. She is oriented x2. No focal deficit, but generalized weakness. LABORATORY: WBC 9.1, hemoglobin 12.6, hematocrit 38.7, platelet 295,000. Sodium 138, potassium 4.2, chloride 105, bicarbonate 23, BUN 14, creatinine 0.8, glucose 97, calcium 8.2. AST 23, ALT 19, alkaline phosphatase 87. ASSESSMENT AND PLAN: 1. Acute cystitis. Continue with antibiotics. We have a positive culture that showed gram- negative rods. Pending sensitivity, continue with Rocephin. 2. Dehydration. Resolved. 3. Orthostatic hypotension due to dehydration. Resolved. 4. Encephalopathy in a patient with a history of dementia. Aware. She seems to be better. We will continue to monitor. 5. Diarrhea. She has been having multiple loose bowel movements, more watery than formed. I have requested Clostridium difficile toxin and antigen to rule out Clostridium difficile colitis, and WBC in the stool. We will monitor. 6. Hypertension. Stable. 7. Hypothyroidism. Continue with levothyroxine. 8. Gastroesophageal reflux disease. Continue with proton pump inhibitors. Overall, she is doing better. Will continue physical therapy. Hopefully tomorrow, will discharge this patient back to her place, if everything is okay. cc: Kyle Ruby MD
[2019-01-06] MEDS: NS 1,000 ML IV SCH (03:31)
[2019-01-06 08:17] VITALS: BP 155/83
[2019-01-06] MEDS: CARAFATE PO SCH (08:46)
[2019-01-06] MEDS: SYNTHROID PO SCH (08:46)
[2019-01-06] MEDS: CULTURELLE PO SCH (08:46)
[2019-01-06] MEDS: PRILOSEC PO SCH (08:46)
[2019-01-06] MEDS: PROZAC PO SCH (08:47)
--- NOTE | 2019-01-06 09:31 | DISCHARGE SUMMARY ---
ADMISSION DATE: 01/03/2019 DISCHARGE DATE: DISCHARGE DIAGNOSES: 1. Acute cystitis. 2. Infectious encephalopathy due to urinary tract infection. 3. Baseline dementia. 4. Dehydration resolved. 5. Orthostatic hypotension due to dehydration resolved. 6. Diarrhea resolved. 7. Hypertension stable. 8. Hypothyroidism. 9. Gastroesophageal reflux disease. 10. Generalized weakness and physical deconditioning. PROCEDURES PERFORMED: 1. Chest x-ray dated 01/03/2019. Impression: Stable chest. 2. Head CT scan dated 01/03/2019. Impression: No acute process. No change from prior. 3. Renal CT scan dated 01/03/2019. Impression: Negative exam. 4. Urine culture positive for Proteus mirabilis. Blood culture negative. HOSPITAL COURSE: A 78-year-old female with a significant past medical history of dementia, hypertension, hypothyroidism, GERD, depression and situational depression. Her daughter has been taking care of her as she is the caregiver. She works in assisted living herself. She was admitted on 01/03/2019, due to more confusion. The patient has a baseline dementia. She was not sleeping the whole night, and she has been falling multiple times. She saw Dr. Sarmiento the day of admission, who requested to be admitted directly for treatment. We found that this patient has an a symptomatic UTI where the urine culture showed Proteus mirabilis. She received ceftriaxone and she will be discharged on Keflex. Since this patient has been having generalized weakness, she will be discharged to a rehab center. At the moment of discharge, the patient was in a stable medical condition tolerating p.o., and basically back to her baseline. PHYSICAL EXAMINATION: Vital Signs: Temperature 97.8 degrees, pulse 85, respiratory rate 16, blood pressure 155/83, and oxygen saturation 99 percent on room air. HEENT: Head normocephalic. No trauma. PERRLA. Neck: Supple. No JVD. No masses. Central trachea. Chest: Clear to auscultation. No wheezing. No rales. Abdomen: Soft. Some tenderness to palpation at the level of the suprapubic area. Extremities: No edema. No clubbing. No cyanosis. Neurological: The patient is alert. She is following commands. Oriented x2. No focal deficit but generalized weakness. LABORATORY: WBC 9.1, hemoglobin 12.6, hematocrit 38.7, and platelets 295,000. Sodium 138, potassium 4.2, chloride 105, bicarbonate 23, BUN 14, creatinine 0.8 glucose 97, calcium 8.2, AST 23, ALT 19, alkaline phosphatase 87, and albumin 3.5. DISCHARGE MEDICATIONS: 1. Keflex 500 mg p.o. b.i.d. to complete 7 days. 2. Fluoxetine 40 mg p.o. daily. 3. Probiotic 1 tablet p.o. daily. 4. Levothyroxine 150 mcg p.o. daily. 5. Lisinopril 10 mg p.o. daily. 6. Omeprazole 40 mg p.o. daily. 7. Carafate 1 g p.o. 4 times a day. This patient will be discharged to rehab center. Follow up as an outpatient with her primary care doctor in 3 weeks. cc: Kyle Ruby MD
== END 2019-01-06 11:45 | DRG 690 ==
LOC: SUPCPDRO → ED 12:38 → SUATTDRO 17:32 → EDIPHOLD 17:32 → 1N 20:33
PROVIDERS: ATTEND Internal Medicine